=== PATIENT | female | born 1935 | race Caucasian/White ===

== ENCOUNTER 2016-05-04 13:31 | Emergency (ER) | payer MEDICARE ==
--- NOTE | 2016-05-04 15:13 | RAD ---
Indication: Fall. Comparison: August 23, 2014 MRI MRI. April 28, 2011 CT. Technique: Noncontrast CT vertex of skull through foramen magnum. Report: Moderate prominence of the cerebral sulci and ventricles. Unremarkable basal cisterns. Negative for hartman matter white matter obscuration, intra or extra-axial hemorrhage, or mass effect. Decreased density in the periventricular and subcortical white matter while non-specific is most likely due to chronic microangiopathy. No fracture or suspicious lesion of the calvarium or skull base. Small mucous retention cyst in the RIGHT sphenoid sinus. Negative for paranasal sinus fluid levels within the [id number]. Grossly clear mastoid air spaces. Negative for scalp hematoma. IMPRESSION: 1. No evidence for traumatic brain injury or acute intracranial process. 2. Mild to moderate involutional change with progression and stigmata of chronic small vessel ischemic gliosis.
[2016-05-04 17:18] VITALS: BP 117/79
--- NOTE | 2016-05-05 07:39 | ED ---
Bradford Thomas Adam, scribed for Noah Vega MD on 05/04/16 at 1438 . Adult Trauma - HPI Summary HPI Summary: Pt is a 81 year old female who fell off the toilet this morning and sustained injuries to her head. She states that she is incontinent and as she sat down on the toilet seat she skidded off and fell to the ground. She struck the back of her head and she presents with a lump but denies any KRISHNAN. She also has a laceration with dried blood on the top of her lip and on the outside of her right eye. She does not remember if she lost consciousness. She is not on any blood thinners. PMHx of sciatica on the right side. - History of Current Complaint Chief Complaint: EDSyncope Stated Complaint: FALL Time Seen by Provider: 05/04/16 14:06 Hx Obtained From: Patient Mechanism of Injury: Fall Loss of Consciousness: unsure Onset/Duration: Started Hours Ago, Traumatic, Still Present Onset of Pain: Immediate Onset Severity: Mild Current Severity: Mild Location: Head Aggravating Factor(s): Nothing Alleviating Factor(s): Nothing Associated Signs & Symptoms: Positive: Memory Loss - Unsure if she lost consciousness - Allergy/Home Medications Allergies/Adverse Reactions: Allergies Allergy/AdvReac Type Severity Reaction Status Date / Time Acetaminophen [From Percocet] Allergy Vomiting Verified 03/15/16 07:15 Aripiprazole [From Abilify] Allergy Hallucinati Verified 03/15/16 07:15 ons Lactose Intolerance (GI) Allergy Nausea And Verified 03/15/16 07:15 Vomiting Oxycodone [From Percocet] Allergy Vomiting Verified 03/15/16 07:15 Sulfa Antibiotics Allergy Nausea And Verified 03/15/16 07:15 Vomiting Valproic Acid [From Depakote] AdvReac Severe psychosis Verified 03/15/16 07:15 PMH/Surg Hx/FS Hx/Imm Hx Endocrine/Hematology History: Reports: Hx Thyroid Disease - ON DAILY MEDS Denies: Hx Diabetes Cardiovascular History: Denies: Hx Hypertension, Hx Pacemaker/ICD Respiratory History: Denies: Hx Asthma GI History: Reports: Hx Gastroesophageal Reflux Disease - ON MEDS DAILY, Hx Irritable Bowel - CHRONIC CONSTIPATION, Other GI Disorders - 2011 BLEEDING GGASTRIC ULCER, [place] [facility] [place] History: Denies: Hx Renal Disease Musculoskeletal History: Reports: Hx Arthritis - NUMEROUS JOINTS, Other Musculoskeletal History - SCOLIOSIS, VERY DIFFICULT TO TOLERATE LYING ON BACK Sensory History: Reports: Hx Cataracts - BILATERAL, Hx Contacts or Glasses - GLASSES Denies: Hx Hearing Aid Opthamlomology History: Reports: Hx Cataracts - BILATERAL, Hx Contacts or Glasses - GLASSES Neurological History: Reports: Other Neuro Impairments/Disorders - BIPOLAR Psychiatric History: Reports: Hx Anxiety, Hx Depression Denies: Hx Panic Disorder - Cancer History Cancer Type, Location and Year: CARCINOMA Hx Chemotherapy: No Hx Radiation Therapy: No - Surgical History Surgery Procedure, Year, and Place: C SECTION X 3; BLADDER PROLAPSE REPAIR 3 YRS AGO; CERVIX PROLAPSE REPAIR 3 YRS AGO; Hx Anesthesia Reactions: No Infectious Disease History: Yes Infectious Disease History: Reports: Hx Hepatitis - hep A Denies: Traveled Outside the [place] in Last 30 Days - Family History Known Family History: Positive: Other - Negative FMHx of breast CA - Social History Occupation: Retired Lives: Alone Alcohol Use: Weekly Alcohol Amount: 1 DRINK/WEEK Hx Substance Use: No Substance Use Type: Reports: None Hx Tobacco Use: No Smoking Status (MU): Never Smoked Tobacco Have You Smoked in the Last Year: No Review of Systems Positive: Other - Lump on back of head Positive: Other - Laceration on upper lip and outside of right eye Negative: Headache All Other Systems Reviewed And Are Negative: Yes Physical Exam Triage Information Reviewed: Yes Vital Signs On Initial Exam: Initial Vitals Temp Pulse Resp BP Pulse Ox 98.1 F 48 16 135/76 94 05/04/16 13:44 05/04/16 13:44 05/04/16 13:44 05/04/16 13:44 05/04/16 13:44 Vital Signs Reviewed: Yes Appearance: Positive: Well-Appearing, No Pain Distress Skin: Positive: Other - 1.25 cm laceration on upper lip, completely outside vermilion border. Superficial 1 cm laceration just superior to the right lateral eyebrow, doesn't need stitches. Head/Face: Positive: Normal Head/Face Inspection Eyes: Positive: Normal ENT: Positive: Normal ENT inspection Neck: Positive: Supple, Nontender Respiratory/Lung Sounds: Positive: Clear to Auscultation, Breath Sounds Present Cardiovascular: Positive: RRR Abdomen Description: Positive: Nontender, Soft Bowel Sounds: Positive: Present Musculoskeletal: Positive: Normal Neurological: Positive: Normal Psychiatric: Positive: Normal, Affect/Mood Appropriate - [place] Coma Scale Coma Scale Total: 15 Procedures - Laceration/Wound Repair 1 Location: face Description: Linear Anesthesia: Local, 2.0% Length, Depth and Shape: 1.25 cm Betadine Prep?: Yes Laceration/Wound Explored: clean Closure: Single Layer Suture Type: Nylon - 6.0 Number of Sutures: 7 Layer Closure?: No Diagnostics - Vital Signs Vital Signs Temp Pulse Resp BP Pulse Ox 05/04/16 13:44 98.1 F 48 16 135/76 94 - Laboratory Lab Results: Lab Results 05/04/16 Range/Units 14:12 POC Glucose (mg/dL) 111 H (74-106) mg/dL Lab Statement: Any lab studies that have been ordered have been reviewed, and results considered in the medical decision making process. - CT BRAIN CT Interpretation Completed By: Radiologist - IMPRESSION: 1. No evidence for traumatic brain injury or acute intracranial process. 2. Mild to moderate involutional change with progression and stigmata of chronic small vessel ischemic gliosis. - Additional Comments Diagnostic Additional Comments: Glucose - 111 Adult Trauma Course/Dx - Course Course Of Treatment: Ms. Camarena presented after a ifrah fall with no C/O except mild head pain and two lacerations. A head CT was normal. She had a superficial 1 cm laceration just superior to the lateral border of her right eyebrow I cleaned but did not require sutures. She had a slightly longer and deeper laceration just right of the midline of her upper lip outside the yamileth border that I repaired. She will need suture removal in 3-5 days. - Diagnoses Provider Diagnoses: Head injury, Facial laceration Discharge - Discharge Plan Condition: Stable Disposition: HOME Patient Education Materials: Head Injury (ED), Facial Laceration (ED) Referrals: Carmine Mehta MD [Primary Care Provider] - Additional Instructions: Follow up with Dr. Mehta in 3-5 days to have sutures removed. The documentation as recorded by the Bradford glover Adam accurately reflects the service I personally performed and the decisions made by , Noah Vega MD.
== END 2016-05-04 17:18 | disposition home or self-care (01) ==
LOC: ED 13:31
DX: S01.511A Laceration without foreign body of lip, initial encounter (principal); S09.90XA Unspecified injury of head, initial encounter; R55 Syncope and collapse; R22.0 Localized swelling, mass and lump, head; W18.12XA Fall from or off toilet with subsequent striking against object, initial encounter; Y93.9 Activity, unspecified; Y92.9 Unspecified place or not applicable; Y99.9 Unspecified external cause status
CPT/HCPCS: 12001; 70450; 99285

== ENCOUNTER 2017-04-06 21:32 | Observation (INO) | payer MEDICARE ==
--- OUTSIDE RECORDS SUMMARY | 2017-04-06 22:02 | XMS REPORT ---
:1935 External Reference #:[id number] Author Organization [facility] Address [address] [address] Phone [phone] Care Team Providers Name Role Phone Carmine Mehta MD Primary Care Physician Unavailable Payers Type Date Identification Numbers Payment Provider Subscriber Medicare Primary Effective: Policy Number: Medicare Julianne Camarena 1999 [id number] PayID: [id number] [address] [place] [address] [facility] Policy Number: [id number] [facility] Julianne Camarena PayID: [id number] [address] [place] [address] Problems Date Description Provider Status Onset: 08/16/2014 Constipation Blanca Erickson M.D. Active Onset: 08/16/2014 Urinary incontinence Blanca Erickson M.D. Active Onset: 08/16/2014 Bipolar disorder Blanca Erickson M.D. Active Onset: 03/02/2016 Acquired trigger finger Alfredo tSokes MD Active Social History Type Date Description Comments Lives With Assisted living ETOH Use Occasionally consumes alcohol 3 drinks weekly Smoking Patient has never smoked Exercise Type/Frequency Exercises sporadically Allergies, Adverse Reactions, Alerts Date Description Reaction Status Severity Comments 08/16/2014 Abilify "I went crazy" active 08/16/2014 Depakote "I went crazy." active 09/30/2014 Percocet Unknown active Medications Medication Date Status Form Strength Qnty SIG Indications Ordering Provider Naproxen 01/08/ Active Tablets 500mg 60tab 1 po bid Sarwat Cuellar M.D. [place] / Active Capsules 300mg 1 by mouth Unknown Carbonate 0000 every morning Seroquel / Active Tablets 100mg 1 by mouth Unknown 0000 every night Aricept / Active Tablets 5mg 1 by mouth Unknown 0000 every day Levothyroxine / Active Tablets 125mcg 1 by mouth Unknown Sodium 0000 every day Metoprolol // Active Tablets ER 25mg 1 by mouth Unknown Succinate ER 0000 24HR every day Omeprazole / Active Capsules 20mg 1 by mouth Unknown 0000 DR every day Simvastatin / Active Tablets 20mg 1 by mouth Unknown 0000 every day Diphenoxylate-At / Active Tablets 1 tab po Unknown ropine 0000 bid. If not effective, may take tid Melatonin / Active Capsules 1mg 1 tab po Unknown 0000 dailyevery day Multivitamins / Active Capsules 1 capsule Unknown 0000 daily [place] / Active Tablets ER 450mg Unknown Carbonate ER 0000 Donepezil HCL / Active Tablets 10mg Unknown 0000 Montelukast / Active Tablets 10mg Windy, Sodium 0000 Sugey Hydrocortisone / Active Cream 2.5% Kleveno, 0000 Ashley, [employer] Latuda / Active Tablets 40mg Unknown 0000 Gabapentin / Active Capsules 300mg Unknown 0000 Hydrocodone-Acet 03/15/ Hx Tablets 5-325mg 10tab 1 tab by Alfredo anderson 2015 - mouth every Kike, 03/15/ 6 hours as 2016 needed for pain Celestone 3 mg / Active Injection Alfredo and 3mg 0000 MD Kike Vital Signs Date Vital Result Comment 03/22/2017 Height 61.5 inches 5'1.50" Weight 185.00 lb Heart Rate 58 /min BP Systolic Sitting 148 mmHg BP Diastolic Sitting 86 mmHg Body Temperature 98.6 F BMI (Body Mass Index) 34.4 kg/m2 05/15/2016 Height 64 inches 5'4" Weight 185.00 lb Pain Level 0 BMI (Body Mass Index) 31.8 kg/m2 03/27/2016 Height 64 inches 5'4" Weight 185.00 lb BMI (Body Mass Index) 31.8 kg/m2 03/02/2016 Height 64 inches 5'4" Weight 185.00 lb Heart Rate 60 /min Respiratory Rate 16 /min Pain Level 0 BMI (Body Mass Index) 31.8 kg/m2 09/30/2014 Height 64 inches 5'4" Weight 184.00 lb Heart Rate 60 /min BP Systolic Sitting 140 mmHg BP Diastolic Sitting 80 mmHg Respiratory Rate 16 /min BMI (Body Mass Index) 31.6 kg/m2 08/16/2014 Height 64 inches 5'4" Weight 184.00 lb Heart Rate 56 /min BP Systolic Sitting 126 mmHg BP Diastolic Sitting 72 mmHg Respiratory Rate 16 /min BMI (Body Mass Index) 31.6 kg/m2 Results Test Date Test Result H/L Range Note Laboratory test finding 09/30/2014 Vitamin B12 567 pg/mL 180-914 1 1 Normal Range 180 to 914 Indeterminate Range 145 to 180 Deficient Range <145 Procedures Date CPT Code Description Status 03/22/2017 88327 Inject Tendon Sheath Or Ligament Aponeurosis Eg Plantar Completed Fascia 05/18/2016 23331 Holter Monitor Review (24 hr)dr mcconnell & kayla Completed only 05/17/2016 91609 ECG Monitor/Recording W/Visual Superimposition Scanning Completed 03/15/2016 18277 Trigger Finger Release Incision / Tendon Sheath Completed Incision 03/15/2016 62007 Trigger Finger Release Incision / Tendon Sheath Completed Incision 03/15/2016 32943 Trigger Finger Release Incision / Tendon Sheath Completed Incision 09/12/2012 84081 EKG Tracing & Interpretation Completed Encounters Type Date Location Provider CPT E/M Dx Office Visit 03/22/2017 [place] [address] M65.332 1:00p [facility] Office Visit 03/02/2016 [place] [address] M65.342 10:30a [facility] M65.352 M72.0 Office Visit 09/30/2014 10:30a [facility] Blanca Erickson, 38416 331.83 Janny Office Visit 08/16/2014 10:00a [facility] Blanca Erickson, 87068 V15.88 Services Of [facility] Soliman [phone] 331.83 Office Visit 09/12/2012 2:30p [facility] Geoffrey Ac M.D., 86551 794.30 [facility] At [facility] Office Visit 01/02/2011 1:15p [facility] Of Sarwat Cuellar, 57363 727.04 Lyric Soliman 354.0 Office Visit 12/25/2010 10:45a [facility] Emil Mcduffie, 21426 719.45 Of [facility] Soliman Office Visit 01/12/2010 10:00a [facility] Of Sarwat Cuellar, 40069 354.0 Lyric Soliman 718.84 Office Visit 2008 2:00p [facility] Emil Mcduffie, 54786 756.12 Of [facility]ante Soliman Office Visit 11/20/2007 10:15a [facility] Emil Mcduffie 27590 756.12 Of Devante Soliman 724.02 724.3 Plan of Care No Information Available
[2017-04-06] MEDS ORDERED: NS 0.9% 1000 ML* 1,000 ML IV SCH (22:30)
[2017-04-06 23:18] LABS: Hematocrit 40 % (35-47); Hemoglobin 13.3 g/dl (12.0-16.0); Mean Corpuscular HGB Conc 33 g/dl (31-36); Mean Corpuscular Hemoglobin 31 pg (27-31); Mean Corpuscular Volume 95 fL (80-97); Mean Platelet Volume 9 um3 (7.4-10.4); Red Blood Count 4.24 10^6/ul (4.0-5.4); Red Cell Distribution Width 13 % (10.5-15); White Blood Count 9.5 10^3/ul (3.5-10.8)
[2017-04-06 23:31] LABS: ALT 15 U/L (7-52); AST 18 U/L (13-39); Alkaline Phosphatase 81 U/L (34-104); Anion Gap 5 mmol/L (2-11); BUN/Creatinine Ratio 25.5 (8-20); Blood Urea Nitrogen 25 mg/dL (6-24); C Reactive Protein < 1.00 mg/L (< 5.00); CO2 Carbon Dioxide 24 mmol/L (22-32); Calcium 9.5 mg/dL (8.6-10.3); Chloride 110 mmol/L (101-111); EGFR African American 70.2 (>60); EGFR Non-African American 54.6 (>60); Globulin 2.6 g/dL (2-4); Glucose 99 mg/dL (70-100); Potassium 4.3 mmol/L (3.5-5.0); Sodium 139 mmol/L (133-145); Total Protein 6.6 g/dL (6.4-8.9)
[2017-04-06 23:33] LABS: Troponin I 0.02 ng/mL (<0.04)
[2017-04-06 23:45] LABS: TSH (Thyroid Stimulating Horm) 2.62 mcIU/mL (0.34-5.60)
--- NOTE | 2017-04-07 00:27 | ED ---
Scotty Thomas Natalie, scribed for Gomez Lord MD on 04/06/17 at 2226 . Dizziness - HPI Summary HPI Summary: The pt is a 82 y/o F presenting to the ED via EMS from [place] c/o fall when getting out of the bath today, and falling before earlier in the week. She uses a walker for ambulation, as recommended by her PCP. She falls regularly but can t get up due to limited upper extremity strength. The patient doesnt have any injury or pain from this fall. She has injured her head from previous falls. Pt additionally c/o nasal drainage, dizziness, and incontinence. Pt denies headache , chills, fever, blood in stools, melena, abd pain, back pain, CP, and SOB. She lives independently. - History Of Current Complaint Chief Complaint: EDGeneral Stated Complaint: FALL, DIZZINESS Time Seen by Provider: 04/06/17 22:08 Hx Obtained From: Patient Onset/Duration: Resolved Severity Initially: Moderate Severity Currently: None Character: Dizzy Aggravating Factor(s): Nothing Alleviating Factor(s): Nothing Associated Signs And Symptoms: Positive: Other: - POSITIVE: nasal drainage, dizziness, incontinence; NEGATIVE: headache, chills, fever, blood in stools, melena, abd pain, back pain, CP, SOB - Allergies/Home Medications Allergies/Adverse Reactions: Allergies Allergy/AdvReac Type Severity Reaction Status Date / Time Acetaminophen [From Percocet] Allergy Vomiting Verified 03/15/16 07:15 Aripiprazole [From Abilify] Allergy Hallucinati Verified 03/15/16 07:15 ons Lactose Intolerance (GI) Allergy Nausea And Verified 03/15/16 07:15 Vomiting Oxycodone [From Percocet] Allergy Vomiting Verified 03/15/16 07:15 Sulfa Antibiotics Allergy Nausea And Verified 03/15/16 07:15 Vomiting Valproic Acid [From Depakote] AdvReac Severe psychosis Verified 03/15/16 07:15 PMH/Surg Hx/FS Hx/Imm Hx Previously Healthy: No Endocrine/Hematology History: Reports: Hx Thyroid Disease - ON DAILY MEDS Denies: Hx Diabetes Cardiovascular History: Denies: Hx Hypertension, Hx Pacemaker/ICD Respiratory History: Denies: Hx Asthma GI History: Reports: Hx Gastroesophageal Reflux Disease - ON MEDS DAILY, Hx Irritable Bowel - CHRONIC CONSTIPATION, Other GI Disorders - 2010 BLEEDING GGASTRIC ULCER, HOSPITALIZED [facility] History: Denies: Hx Renal Disease Musculoskeletal History: Reports: Hx Arthritis - NUMEROUS JOINTS, Other Musculoskeletal History - SCOLIOSIS, VERY DIFFICULT TO TOLERATE LYING ON BACK Sensory History: Reports: Hx Cataracts - BILATERAL, Hx Contacts or Glasses - GLASSES Denies: Hx Hearing Aid Opthamlomology History: Reports: Hx Cataracts - BILATERAL, Hx Contacts or Glasses - GLASSES Neurological History: Reports: Other Neuro Impairments/Disorders - BIPOLAR Psychiatric History: Reports: Hx Anxiety, Hx Depression Denies: Hx Panic Disorder - Cancer History Cancer Type, Location and Year: CARCINOMA Hx Chemotherapy: No Hx Radiation Therapy: No - Surgical History Surgery Procedure, Year, and Place: C SECTION X 3; BLADDER PROLAPSE REPAIR 3 YRS AGO; CERVIX PROLAPSE REPAIR 3 YRS AGO; Hx Anesthesia Reactions: No Infectious Disease History: No Infectious Disease History: Reports: Hx Hepatitis - hep A Denies: Traveled Outside the [place] in Last 30 Days - Family History Known Family History: Positive: Other - Negative FMHx of breast CA Negative: Diabetes - Social History Alcohol Use: Weekly Alcohol Amount: 1 DRINK/WEEK Hx Substance Use: No Substance Use Type: Reports: None Hx Tobacco Use: No Smoking Status (MU): Never Smoked Tobacco Have You Smoked in the Last Year: No Review of Systems Negative: Fever, Chills Positive: Nasal Discharge Negative: Chest Pain Negative: Shortness Of Breath Positive: Other - NEGATIVE: blood in stool, melena. Negative: Abdominal Pain Positive: incontinence Positive: Other - limited upper extremity strength Neurological: Other - dizziness, fall Negative: Headache All Other Systems Reviewed And Are Negative: Yes Physical Exam Triage Information Reviewed: Yes Vital Signs On Initial Exam: Initial Vitals Temp Pulse Resp BP Pulse Ox 98 F 71 14 139/84 93 04/06/17 21:38 04/06/17 21:38 04/06/17 21:38 04/06/17 21:38 04/06/17 21:38 Vital Signs Reviewed: Yes Appearance: Positive: Well-Appearing, No Pain Distress Skin: Positive: Warm, Skin Color Reflects Adequate Perfusion, Dry Head/Face: Positive: Normal Head/Face Inspection Eyes: Positive: EOMI, JOSÉ ENT: Positive: Normal ENT inspection Neck: Positive: Supple, Nontender Respiratory/Lung Sounds: Positive: Clear to Auscultation, Breath Sounds Present Cardiovascular: Positive: RRR Abdomen Description: Positive: Nontender, Soft Bowel Sounds: Positive: Present Musculoskeletal: Positive: Normal, Strength/ROM Intact Neurological: Positive: Normal, Sensory/Motor Intact, Alert, Oriented to Person Place, Time Psychiatric: Positive: Affect/Mood Appropriate - Zbigniew Coma Scale Coma Scale Total: 15 Diagnostics - Vital Signs Vital Signs Temp Pulse Resp BP Pulse Ox 04/06/17 21:38 98 F 71 14 139/84 93 - Laboratory Lab Results: Lab Results 04/06/17 04/06/17 04/06/17 Range/Units 23:01 23:01 23:01 WBC 9.5 (3.5-10.8) 10^3/ul RBC 4.24 (4.0-5.4) 10^6/ul Hgb 13.3 (12.0-16.0) g/dl Hct 40 (35-47) % MCV 95 (80-97) fL MCH 31 (27-31) pg MCHC 33 (31-36) g/dl RDW 13 (10.5-15) % Plt Count 190 (150-450) 10^3/ul MPV 9 (7.4-10.4) um3 Neut % (Auto) 76.4 (38-83) % Lymph % (Auto) 13.8 L (25-47) % [place] % (Auto) 7.4 (1-9) % Eos % (Auto) 1.5 (0-6) % Baso % (Auto) 0.9 (0-2) % Absolute Neuts (auto) 7.2 (1.5-7.7) 10^3/ul Absolute Lymphs (auto) 1.3 (1.0-4.8) 10^3/ul Absolute Monos (auto) 0.7 (0-0.8) 10^3/ul Absolute Eos (auto) 0.1 (0-0.6) 10^3/ul Absolute Basos (auto) 0.1 (0-0.2) 10^3/ul Absolute Nucleated RBC 0 10^3/ul Nucleated RBC % 0 INR (Anticoag Therapy) 0.89 (0.77-1.02) APTT 27.7 (26.0-36.3) seconds Sodium 139 (133-145) mmol/L Potassium 4.3 (3.5-5.0) mmol/L Chloride 110 (101-111) mmol/L Carbon Dioxide 24 (22-32) mmol/L Anion Gap 5 (2-11) mmol/L BUN 25 H (6-24) mg/dL Creatinine 0.98 H (0.51-0.95) mg/dL Est GFR ( Amer) 70.2 (>60) Est GFR (Non-Af Amer) 54.6 (>60) BUN/Creatinine Ratio 25.5 H (8-20) Glucose 99 (70-100) mg/dL Lactic Acid (0.5-2.0) mmol/L Calcium 9.5 (8.6-10.3) mg/dL Magnesium 2.0 (1.9-2.7) mg/dL Total Bilirubin 0.30 (0.2-1.0) mg/dL AST 18 (13-39) U/L ALT 15 (7-52) U/L Alkaline Phosphatase 81 (34-104) U/L Troponin I 0.02 (<0.04) ng/mL C-Reactive Protein < 1.00 (< 5.00) mg/L Total Protein 6.6 (6.4-8.9) g/dL Albumin 4.0 (3.2-5.2) g/dL Globulin 2.6 (2-4) g/dL Albumin/Globulin Ratio 1.5 (1-3) TSH 2.62 (0.34-5.60) mcIU/mL // Range/Units 23:01 WBC (3.5-10.8) 10^3/ul RBC (4.0-5.4) 10^6/ul Hgb (12.0-16.0) g/dl Hct (35-47) % MCV (80-97) fL MCH (27-31) pg MCHC (31-36) g/dl RDW (10.5-15) % Plt Count (150-450) 10^3/ul MPV (7.4-10.4) um3 Neut % (Auto) (38-83) % Lymph % (Auto) (25-47) % [place] % (Auto) (1-9) % Eos % (Auto) (0-6) % Baso % (Auto) (0-2) % Absolute Neuts (auto) (1.5-7.7) 10^3/ul Absolute Lymphs (auto) (1.0-4.8) 10^3/ul Absolute Monos (auto) (0-0.8) 10^3/ul Absolute Eos (auto) (0-0.6) 10^3/ul Absolute Basos (auto) (0-0.2) 10^3/ul Absolute Nucleated RBC 10^3/ul Nucleated RBC % INR (Anticoag Therapy) (0.77-1.02) APTT (26.0-36.3) seconds Sodium (133-145) mmol/L Potassium (3.5-5.0) mmol/L Chloride (101-111) mmol/L Carbon Dioxide (22-32) mmol/L Anion Gap (2-11) mmol/L BUN (6-24) mg/dL Creatinine (0.51-0.95) mg/dL Est GFR ( Amer) (>60) Est GFR (Non-Af Amer) (>60) BUN/Creatinine Ratio (8-20) Glucose (70-100) mg/dL Lactic Acid 1.2 (0.5-2.0) mmol/L Calcium (8.6-10.3) mg/dL Magnesium (1.9-2.7) mg/dL Total Bilirubin (0.2-1.0) mg/dL AST (13-39) U/L ALT (7-52) U/L Alkaline Phosphatase (34-104) U/L Troponin I (<0.04) ng/mL C-Reactive Protein (< 5.00) mg/L Total Protein (6.4-8.9) g/dL Albumin (3.2-5.2) g/dL Globulin (2-4) g/dL Albumin/Globulin Ratio (1-3) TSH (0.34-5.60) mcIU/mL Result Diagrams: 04/06/17 23:01 04/06/17 23:01 Lab Statement: Any lab studies that have been ordered have been reviewed, and results considered in the medical decision making process. - Radiology CXR Xray Interpretation: No Acute Changes - NAD. ED physician has reviewed this report. Radiology Interpretation Completed By: Radiologist - CT Brain CT CT Interpretation: Positive (See Comments) - There is no intra or extra-axial hemorrhage or collection. No mass lesion or midline shift. There is stable moderate cortical atrophy. The size of the ventricles corresponds to the degree of cortical atrophy. Normal govea-white matter differentiation. Confluent areas of low attenuation in the periventricular and deep white matter again noted and this was compatible with chronic microvascular ischemic changes. ED physician has reviewed this report. CT Interpretation Completed By: Radiologist - EKG 22:48 Cardiac Rate: NL EKG Rhythm: Sinus Rhythm - 60 BPM EKG Interpretation: Nml ST. No ectopy. OR interval 311. Dizzy Course/Dx - Course Course Of Treatment: BP noted and advised to follow up with PCP. Allergies noted. Medications reviewed. 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 IN THE ED, SHE IS NO LONGER IN LBBB. THERE IS A PROLONGED OR INTERVAL. THIS WAS DISCUSSED WITH THE PATIENT, HER DAUGHTER AND THE HOSPITALIST. ADMIT HOSPITALIST. NO CRITICAL CARE TIME. - Diagnoses Provider Diagnoses: Dizziness, LBBB (left bundle branch block), Frequent falls Discharge - Discharge Plan Condition: Stable Disposition: ADMITTED TO [facility] Referrals: Carmine Mehta MD [Primary Care Provider] - The documentation as recorded by the Scotty glover Natalie accurately reflects the service I personally performed and the decisions made by me, Gomez Lord MD.
[2017-04-07] MEDS ORDERED: ALPRAZolam TAB* 0.25 MG PO ONE (01:57)
[2017-04-07] MEDS ORDERED: Melatonin (NF) 3 MG TAB PO PRN (04:28)
[2017-04-07] MEDS ORDERED: NS 0.9% 1000 ML* 1,000 ML IV SCH (04:30)
--- NOTE | 2017-04-07 04:57 | HP ---
H&P (Free Text) History and Physical: PCP: Zach Mehta MD Date/Time: 04/07/2017 0415 CC: light-headedness, generalized weakness, fall HPI: Mrs Camarena is an 82YO female resident of [facility] who was taking a bath attempting to get relief from some R-sided sciatica. When she tried to get out of the bathtub she couldn't get her leg up, became light-headed /woozy, generally weak, and fell. She denies head impact, LOC, chest pain, N/V, palpitations, SOB, F/C, cough, congestion, or other issues. She was too weak to stand, but was able to get to her LifeAlert and call for help. EMS obtained an ECG showing a LBBB that had resolved upon ECG performed in [facility]. Labs and vitals are unremarkable. PMedHx bipolar disorder HTN HLD hypothyroidism dementia GERD depression urinary incontinence OA Ambulatory Orders Allergy Relief 1 tab PO QAM 02/01/15 Aspirin [Aspirin Adult Low Dose] 81 mg PO QAM 02/01/15 Percorozcsd-Bfbebifnpim-Fqr C- [Glucosamine Chondroitin] 1 tab PO QAM 02/01/15 [place] Carbonate 150 mg PO QPM 02/01/15 Loperamide CAP* [Imodium CAP*] 2 mg PO Q4H PRN 02/01/15 Metoprolol Tartrate TAB* [Lopressor TAB*] 12.5 mg PO QPM 02/01/15 Multiple Vitamin [Multivitamins] 1 cap PO QAM 02/01/15 [place]-3 Fatty Acids [Fish Oil] 1,000 mg PO QAM 02/01/15 Omeprazole CAP* [PriLOSEC CAP*] 20 mg PO BEDTIME 02/01/15 QUEtiapine TAB* [SEROquel TAB*] 100 mg PO BEDTIME 02/01/15 Simvastatin TAB(NF) [Zocor(NF)] 20 mg PO QPM 02/01/15 Synthroid TAB (NF) 1 tab PO BEDTIME 02/01/15 Aricept 10 mg PO BEDTIME 02/09/15 Melatonin 3 mg PO DAILY 02/09/15 Allergies Acetaminophen [From Percocet] Allergy (Verified 03/15/16 07:15) Vomiting Aripiprazole [From Abilify] Allergy (Verified 03/15/16 07:15) Hallucinations Lactose Intolerance (GI) Allergy (Verified 03/15/16 07:15) Nausea And Vomiting Oxycodone [From Percocet] Allergy (Verified 03/15/16 07:15) Vomiting Sulfa Antibiotics Allergy (Verified 03/15/16 07:15) Nausea And Vomiting Valproic Acid [From Depakote] Adverse Reaction (Severe, Verified 03/15/16 07:15) psychosis SocHx: no tobacco, 1-2 glasses wine weekly, no recreational drugs; lives at [place] independently; full code status FamHx: reviewed, & non-contributory for this 82F ROS: as above, otherwise reviewed and all were negative vitals: Vital Signs Temp 36.6 C 04/06/17 21:38 Pulse 61 04/07/17 04:00 Resp 16 04/07/17 04:00 BP 155/86 04/06/17 22:30 Pulse Ox 95 04/07/17 04:00 Intake & Output 04/06/17 04/06/17 04/07/17 11:59 23:59 11:59 Weight 83.915 kg Constitutional: NAD, normally developed, obese elderly white female HEENM: atraumatic; sclera/conjunctiva: non-icteric/clear; hearing: clinically intact; oropharynx: clear, mucosa moist Neck: soft tissue: non-tender; thyroid: normal Pulmonary: clear to auscultation bilaterally, good aeration, no accessory muscle use CV: RR/RR, normal S1S2, no carotid bruit, no jugular venous distention, 2+ B DP/ PT, no edema Abdominal: soft, non-distended, non-tender, no rebound/guarding/rigidity, normoactive bowel sounds, no hepatosplenomegaly or masses, no costovertebral angle tenderness Musculoskeletal: general: grossly intact, no tenderness w/ palpation Integumental: normal appearance and texture of exposed skin Psychiatric orientation: AA&O to PPS affect: calm mood: cooperative, pleasant eye contact: good content: reliable responses: timely insight: good Testing: Lab Results 04/06/17 04/06/17 04/06/17 Range/Units 23:01 23:01 23:01 WBC 9.5 (3.5-10.8) 10^3/ul RBC 4.24 (4.0-5.4) 10^6/ul Hgb 13.3 (12.0-16.0) g/dl Hct 40 (35-47) % MCV 95 (80-97) fL MCH 31 (27-31) pg MCHC 33 (31-36) g/dl RDW 13 (10.5-15) % Plt Count 190 (150-450) 10^3/ul MPV 9 (7.4-10.4) um3 Neut % (Auto) 76.4 (38-83) % Lymph % (Auto) 13.8 L (25-47) % Darke % (Auto) 7.4 (1-9) % Eos % (Auto) 1.5 (0-6) % Baso % (Auto) 0.9 (0-2) % Absolute Neuts (auto) 7.2 (1.5-7.7) 10^3/ul Absolute Lymphs (auto) 1.3 (1.0-4.8) 10^3/ul Absolute Monos (auto) 0.7 (0-0.8) 10^3/ul Absolute Eos (auto) 0.1 (0-0.6) 10^3/ul Absolute Basos (auto) 0.1 (0-0.2) 10^3/ul Absolute Nucleated RBC 0 10^3/ul Nucleated RBC % 0 INR (Anticoag Therapy) 0.89 (0.77-1.02) APTT 27.7 (26.0-36.3) seconds Sodium 139 (133-145) mmol/L Potassium 4.3 (3.5-5.0) mmol/L Chloride 110 (101-111) mmol/L Carbon Dioxide 24 (22-32) mmol/L Anion Gap 5 (2-11) mmol/L BUN 25 H (6-24) mg/dL Creatinine 0.98 H (0.51-0.95) mg/dL Est GFR ( Amer) 70.2 (>60) Est GFR (Non-Af Amer) 54.6 (>60) BUN/Creatinine Ratio 25.5 H (8-20) Glucose 99 (70-100) mg/dL Lactic Acid (0.5-2.0) mmol/L Calcium 9.5 (8.6-10.3) mg/dL Magnesium 2.0 (1.9-2.7) mg/dL Total Bilirubin 0.30 (0.2-1.0) mg/dL AST 18 (13-39) U/L ALT 15 (7-52) U/L Alkaline Phosphatase 81 (34-104) U/L Troponin I 0.02 (<0.04) ng/mL C-Reactive Protein < 1.00 (< 5.00) mg/L Total Protein 6.6 (6.4-8.9) g/dL Albumin 4.0 (3.2-5.2) g/dL Globulin 2.6 (2-4) g/dL Albumin/Globulin Ratio 1.5 (1-3) TSH 2.62 (0.34-5.60) mcIU/mL 12//17 Range/Units 23:01 WBC (3.5-10.8) 10^3/ul RBC (4.0-5.4) 10^6/ul Hgb (12.0-16.0) g/dl Hct (35-47) % MCV (80-97) fL MCH (27-31) pg MCHC (31-36) g/dl RDW (10.5-15) % Plt Count (150-450) 10^3/ul MPV (7.4-10.4) um3 Neut % (Auto) (38-83) % Lymph % (Auto) (25-47) % Darke % (Auto) (1-9) % Eos % (Auto) (0-6) % Baso % (Auto) (0-2) % Absolute Neuts (auto) (1.5-7.7) 10^3/ul Absolute Lymphs (auto) (1.0-4.8) 10^3/ul Absolute Monos (auto) (0-0.8) 10^3/ul Absolute Eos (auto) (0-0.6) 10^3/ul Absolute Basos (auto) (0-0.2) 10^3/ul Absolute Nucleated RBC 10^3/ul Nucleated RBC % INR (Anticoag Therapy) (0.77-1.02) APTT (26.0-36.3) seconds Sodium (133-145) mmol/L Potassium (3.5-5.0) mmol/L Chloride (101-111) mmol/L Carbon Dioxide (22-32) mmol/L Anion Gap (2-11) mmol/L BUN (6-24) mg/dL Creatinine (0.51-0.95) mg/dL Est GFR ( Amer) (>60) Est GFR (Non-Af Amer) (>60) BUN/Creatinine Ratio (8-20) Glucose (70-100) mg/dL Lactic Acid 1.2 (0.5-2.0) mmol/L Calcium (8.6-10.3) mg/dL Magnesium (1.9-2.7) mg/dL Total Bilirubin (0.2-1.0) mg/dL AST (13-39) U/L ALT (7-52) U/L Alkaline Phosphatase (34-104) U/L Troponin I (<0.04) ng/mL C-Reactive Protein (< 5.00) mg/L Total Protein (6.4-8.9) g/dL Albumin (3.2-5.2) g/dL Globulin (2-4) g/dL Albumin/Globulin Ratio (1-3) TSH (0.34-5.60) mcIU/mL ECG ([facility] personally reviewed: 1st degree AV rate 60, T-wave inversions V1-3/ III/AVF ECG (EMS), personally reviewed: 1st degree LBBB rate 85 CXR, personally reviewed: no acute process CT brain WO, personally reviewed: FINDINGS: There is no intra- or extra-axial hemorrhage or collection. No mass lesion or midline shift. There is stable moderate cortical atrophy. The size of the ventricles corresponds to the degree of cortical atrophy. Normal hartman-white matter differentiation. Confluent areas of low attenuation in the periventricular and deep white matter again noted and this was compatible with chronic microvascular ischemic changes. The calvarium is intact. The visualized paranasal sinuses and mastoid air cells are clear. Impression: 82F presenting with fall, light-headedness, & generalized setting with transient LBBB noted on EMS ECG en route DIAGNOSIS & PLAN Primary transient LBBB w/ light-headedness & generalized weakness : telemetry : trend troponin : hold metoprolol : check ECHO in AM : supplemental oxygen : consider cardiology consult in AM : supportive care Secondary bipolar disorder : review meds once reconciled : check lithium level HTN : review meds once reconciled HLD : review meds once reconciled hypothyroidism : review meds once reconciled dementia : review meds once reconciled GERD : review meds once reconciled depression : review meds once reconciled urinary incontinence : review meds once reconciled OA : review meds once reconciled Admission Rational: observation for symptomatic arrhythmia DVTp: heparin SQ Code Status: full HCP: daughterPatricia
[2017-04-07] MEDS ORDERED: Omeprazole CAP* 20 MG PO SCH ×2 (06:00→21:00)
[2017-04-07 06:58] LABS: Lithium 0.24 mmol/L (0.6-1.2)
[2017-04-07 07:01] LABS: Troponin I 0.02 ng/mL (<0.04)
[2017-04-07 08:41] VITALS: BP 151/79
[2017-04-07] MEDS ORDERED: Aspirin EC Low Dose* 81 MG TAB.EC PO SCH (09:00)
[2017-04-07] MEDS ORDERED: Docusate CAP* 100 MG PO SCH (09:00)
--- NOTE | 2017-04-07 09:04 | RAD ---
Indication: Multiple falls. Single frontal view of the chest performed at 2235 hours was reviewed. Comparison is made with previous exam dated April 28, 2011. No mediastinal shift is noted. There is cardiomegaly noted. Lung lugo are clear. IMPRESSION: CARDIOMEGALY WITH NO ACTIVE CARDIOPULMONARY DISEASE.
--- NOTE | 2017-04-07 09:05 | RAD ---
Indication: Head injury after fall. CT of the brain was performed without IV contrast. Comparison is previous exam dated May 04, 2016. Ventricular structures are midline. No midline shift is noted. The extra-axial spaces are unremarkable. Periventricular lucency consistent with chronic ischemic White matter change is noted. There is no evidence of intracranial mass or hemorrhage. No other high or low density lesions are identified. Mastoid air cells and paranasal sinuses as well as the bony calvaria are unremarkable. IMPRESSION: No intracranial mass or hemorrhage is noted. Chronic ischemic White matter change. No changes noted since May 04, 2016.
[2017-04-07] MEDS ORDERED: NS 0.9% 1000 ML* 1,000 ML IV ONE (11:20)
[2017-04-07 11:48] LABS: HDL Cholesterol 46.6 mg/dL
[2017-04-07] MEDS ORDERED: amLODIPine TAB* 5 MG PO SCH (12:00)
--- NOTE | 2017-04-07 14:15 | ECHO ---
Patient: GABE CHARLES [facility] Rec#: [id number] : 1935 Date: 04/07/2017 Age: 82y Height: 160.02 cm / 63.0 in Weight: 83.91 kg / 184.9 lbs Sex: F BSA: 1.87 Room#: [facility] Admit Date#: 04/07/2017 Type: Inpatient Referring: xAel Salinas MD Reading: Krishna Clark MD Wiener Packer: Blanca OrdazRDCS,RDMS CC: Carmine Mehta MD Transthoracic Echocardiogram Indication: Abnormal EKG BP: 169/67 HR: 69 Rhythm: NSR Findings History: HTN, HLD, murmur Technical Comments: The study quality is fair. Left Ventricle: The left ventricular chamber size is normal.sigmoid septum. There is increased basal septal hypertrophy noted without evidence of an increased gradient across the left ventricular outflow tract. The estimated ejection fraction is 55-60%. Abnormal left ventricular diastolic filling is observed, consistent with impaired relaxation. Left Atrium: The left atrium is moderate to severely dilated. Right Ventricle: The right ventricular chamber size and systolic function are within normal limits. Right Atrium: The right atrium is not well visualized. Aortic Valve: The aortic valve is trileaflet. The aortic valve leaflets are mildly thickened. There is aortic annular calcification. There is mild aortic regurgitation. There is no evidence of aortic stenosis. Mitral Valve: The mitral valve leaflets are mildly thickened. There is a trace of mitral regurgitation. There is no evidence of mitral stenosis. Tricuspid Valve: The tricuspid valve leaflets are normal. There is trace to mild tricuspid regurgitation. No pulmonary hypertension is noted. Pulmonic Valve: The pulmonic valve appears normal. There is a trace pulmonic regurgitation. Pericardium: There is no significant pericardial effusion. Aorta: The aortic root appears normal. There is no dilatation of the aortic arch. Pulmonary Artery: The main pulmonary artery is not well visualized. Venous: The inferior vena cava appears normal in size. There is a greater than 50% respiratory change in the inferior vena cava dimension. Conclusions The left ventricular chamber size is normal.sigmoid septum. There is increased basal septal hypertrophy noted without evidence of an increased gradient across the left ventricular outflow tract. The estimated ejection fraction is 55-60%. Abnormal left ventricular diastolic filling is observed, consistent with impaired relaxation. The left atrium is moderate to severely dilated. There is a trace of mitral regurgitation. There is trace to mild tricuspid regurgitation. Similar to except that the LA size has increased. Measurements Name Value Normal Range RVIDd (AP) 2D 3.8 cm (0.9 - 2.6) RVDdMajor (2D) 3.4 cm (2.2 - 4.4) IVSd (2D) 1.9 cm (0.6 - 1) LVPWd (2D) 0.9 cm (0.6 - 1) LVIDd (2D) 4.8 cm (3.6 - 5.4) LVIDs (2D) 3.3 cm - LV FS (2D) 31 % (25 - 45) Aortic Annulus 2.1 cm (1.4 - 2.6) Ao root diameter (2D) 3.1 cm (2.1 - 3.5) Ascending Ao 3.3 cm (2.1 - 3.4) Aortic arch 3.3 cm (1.8 - 3.4) LA dimension (AP) 2D 4.8 cm (2.3 - 3.8) LAd ISD 4CH 6 cm (2.9 - 5.3) LA ISD 4CH W 5 cm (2.5 - 4.5) Name Value Normal Range LA ESV SP 4CH (A/L) 71.31 ml - LA ESV SP 2CH (A/L) 74.79 ml - LA ESV BP (A/L) 74.95 ml - LA ESV BP (A/L) index 40 ml/m2 - LA ESV SP 4CH (MOD) 68.47 ml - LA ESV SP 2CH (MOD) 72.56 ml - Name Value Normal Range MV E-wave Vmax 0.5 m/sec - MV deceleration time 243 msec - MV A-wave Vmax 0.9 m/sec - MV E:A ratio 0.6 ratio - P. vein S-wave Vmax 0.5 m/sec - P. vein D-wave Vmax 0.4 m/sec - P. vein S:D Vmax ratio 1.1 ratio - P. vein A-wave duration 111 msec - LV septal e' Vmax 0.04 m/sec - LV lateral e' Vmax 0.05 m/sec - LV E:e' septal ratio 12.5 ratio - LV E:e' lateral ratio 10 ratio - Name Value Normal Range AV Vmax 1.5 m/sec - AV VTI 35 cm - AV peak gradient 9 mmHg - AV mean gradient 4.9 mmHg - LVOT Vmax 0.8 m/sec - LVOT VTI 20.2 cm - LVOT peak gradient 2.6 mmHg - LVOT mean gradient 1.6 mmHg - AR PHT 510.25 msec - AR peak gradient 103.62 mmHg - JEY Vmax 0.4 m/sec - Name Value Normal Range TR Vmax 2.6 m/sec - TR peak gradient 27 mmHg - RAP 3 mmHg - RVSP 30 mmHg - IVC diameter 1.6 cm - Name Value Normal Range PV Vmax 0.7 m/sec - PV peak gradient 2 mmHg -
--- NOTE | 2017-04-07 17:33 | CONS ---
CC: Dr. Mehta; Krishna Clark MD CARDIOLOGY CONSULTATION: DATE OF CONSULT: 04/07/17 CONSULTING PHYSICIAN: Cassia Flores MD REASON FOR EVALUATION: Fall, possible bradycardia, possible conduction system abnormality. HISTORY OF PRESENT ILLNESS: This is a very pleasant 82-year-old woman who has a history of hypertension, hyperlipidemia and bipolar disorder. She has complained of dizziness and lightheaded spells for over 3 years. She states that about 3 years ago, she had an episode where she passed out while standing and does not remember the circumstances. She did have an evaluation back on 28/03, which included an echocardiogram performed in 04/30/11, which revealed basal septal thickening with mild concentric LVH, EF of 55% to 60%, mild left atrial enlargement, mild right ventricular enlargement, trace MR, trace TR, mild pulmonary hypertension. She also had a nuclear stress test on May 01 , which revealed partial stress-induced reversible perfusion defect of the lateral wall, greatest at the apex, suspicious for potential ischemia, preserved left ventricular wall motion, EF of 58% with stress and 73% with rest. According to the patient, she apparently saw Dr. Ac and it was recommended she have a cardiac catheterization, which she declined. She said that since then she has been feeling fairly well, able to use her walker to walk from her room to the dining room at [place] without a problem. She said that she has noticed she has had some sciatica pain on the right and has had some weakness in her legs and has had multiple falls. It sounds as though she had the 1 syncopal episode 3 years ago and that the other episodes have been associated with either mechanical issues or weakness of her right leg. Yesterday, she took a bath which she had not done in a while, to try to alleviate some of her sciatica symptoms. She said she tried to get out of the tub with sitting on the edge of the tub when she had weakness of her legs and fell to the floor and was able to get up. She remembers the fall. She had no loss of consciousness. She has incontinence in general. She denies any chest pain or shortness of breath. senior marketing data analyst were called and a tracing obtained during the evaluation revealed what appeared to be a possible left bundle branch block on the senior marketing data analyst' EKG. By the time she get to the hospital, she was in sinus rhythm with poor R-wave progression, possible old inferior NC and she has had no significant arrhythmias here. She was on a beta-patrick for hypertension which was held. She states that many mornings she will feel a little lightheaded or dizzy when she first gets up. She denies vertigo. She states that resolves after a few minutes, but comes and goes in the morning. She denies any previous rheumatic fever, murmurs, rheumatic heart disease. She does have hypertension, hyperlipidemia. She said she smoked 1 cigarette as a young adult. She has no asthma or emphysema. She denies palpitations or strokes. PAST MEDICAL HISTORY: Includes; 1. Hypertension. 2. Hyperlipidemia. 3. Hypothyroidism. 4. Gastroesophageal reflux. 5. Depression. 6. Bipolar disorder, which she states is well controlled on the medications and with counseling. 7. Urinary incontinence. 8. Osteoarthritis. 9. Sciatica MEDICATIONS: As outpatient include; 1. Synthroid. 2. Simvastatin 20 mg. 3. Seroquel 100 mg a day. 4. Omeprazole 20 mg at bedtime. 5. Multivitamin. 6. Metoprolol 12.5 mg q.p.m. 7. Melatonin. 8. [place] carbonate 150 mg daily. 9. Aspirin 81 mg a day. 10. Aricept 10 mg at bedtime As an inpatient, she is on; 1. Aspirin 81 mg a day. 2. Atorvastatin 10 mg a day. 3. Aricept 10 mg at bedtime. 4. [place] 150 mg q.p.m. 5. Melatonin 3 mg q.p.m. 6. Synthroid 1 tablet at bedtime. 7. Omeprazole 20 mg a day. 8. Seroquel 100 mg at bedtime. 9. Sodium chloride 50 mL an hour. ALLERGIES: Include; 1. ACETAMINOPHEN with vomiting. 2. ABILIFY, hallucinations. 3. LACTOSE intolerance. 4. OXYCODONE, vomiting. 5. SULFA, nausea and vomiting. 6. VALPROIC ACID, psychosis. FAMILY HISTORY: Includes father who had CABG in his 80s. Mother who of malignant brain tumor in her 80s. She is the oldest of 5 siblings. One brother had a pacer at age 76. She was , , and . She has 4 children. 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 SOCIAL HISTORY: She states she drinks about a glass of wine every couple of weeks, but once she has wine, she cannot go to sleep. She lives independently at [place]. ROS: neg x 10 except as above. PHYSICAL EXAM: General: She is a well-developed, well-nourished female, overweight, in no apparent distress. HEENT: Atraumatic, normocephalic. Extraocular muscles intact. Sclerae anicteric. No significant JVD. Carotids 2 + without bruits. Cardiac Exam: S1, S2 with a 1/6 systolic ejection murmur at the base. Chest: Clear. No CVAT. Abdomen: Bowel sounds present. Nontender. Neurologic: Femoral pulses intact without bruits. Distal pulses are intact. No edema. Motor strength 5/5 bilaterally. Deep tendon reflexes 2/ 4. Alert and oriented x3. skin turgor normal. Vital Signs: Blood pressure 151/ 79 with heart rate of 58. DIAGNOSTIC STUDIES/LAB DATA: Include white count 9.5, hemoglobin 13.3, hematocrit of 40, and platelet count 191,000. Sodium 139, potassium 4.3, BUN 25 , creatinine of 0.98. Troponins 0.02 and 0.02. TSH 2.62. [place] level 0.24. EKG from 9:40 this morning revealed sinus rhythm with left axis, old inferior NC, poor R-wave progression, possible anterior NC, and lateral ST-T changes. EKG from yesterday revealed less pronounced T-wave inversions anteriorly and EKG from 02/13/12 revealed sinus rhythm with counterclockwise rotation and possible old inferior NC. IMPRESSION: Ms. Camarena has a history of falls and possible loss of consciousness as well as abnormal stress test in 2012 and sigmoid septum.. Some of them sound as though they may be related to her radiculopathy and sciatic nerve injury, others raise the possibility of Owens Astudillo attack, but these have been rare and her dizziness in the morning may be due to hypotension or bradycardia. I also explained to her that the testing in the past raised the possibility of coronary artery disease and that the transient left bundle on exam and T-wave changes raised the possibility of ischemia vs degenerative conducting system disease. I would also consider the possibility that the statin could be contributing to weakness. For the time being, I would recommend the following; I would suggest an echocardiogram to reassess wall motion abnormalities. I would obtain a stress nuclear to evaluate for progression of her coronary artery disease. If the above is negative, would recommend holding her beta-patrick in light of the bradycardia and first-degree AV block and potential for symptomatic bradycardia or higher degree AV block. If the above is negative, would consider an implantable event monitor to rule out high grade AV block. Would consider using low dose of amlodipine to better control her blood pressures. I would recommend increased hydration. Of note, she is on multiple medications that potentially could affect heart rate and blood pressure regulation for her psychiatric issues. She has complained of occasional dizzies in the mornings. She cannot specify how long it has been going on, but it did not happen today. It is unclear whether her symptoms have been relieved by holding the beta-patrick or not. We will follow for further response to our interventions. Consider a trial of holding the statin if ck elevated or if sx's persist IF symptomatic bradycardia is confirmed, consider a pacer Further recommendations will depend on her clinical course. [id number]/[facility] #: [id number] LIV
[2017-04-07] MEDS ORDERED: Atorvastatin* 10 MG TAB PO SCH (18:00)
[2017-04-07] MEDS ORDERED: Lithium Carbonate TAB* 300 MG PO SCH (18:00)
[2017-04-07] MEDS ORDERED: SYNTHROID PO SCH (21:00)
[2017-04-07] MEDS ORDERED: CMCS Melatonin (NF) 3 MG TAB PO SCH (21:00)
[2017-04-07] MEDS ORDERED: Donepezil TAB* 5 MG PO SCH (21:00)
[2017-04-07] MEDS ORDERED: QUEtiapine TAB* 100 MG PO SCH (21:00)
--- NOTE | 2017-04-08 05:42 | DS ---
CC: Dr. Mehta; Dr. Clark * DISCHARGE SUMMARY: DATE OF ADMISSION: 04/07/17 DATE OF PATIENT SIGNING AGAINST MEDICAL ADVICE: 04/07/17 CONSULTATION: During the hospital stay included Dr. Clark from Cardiology. DISCHARGE DIAGNOSES: 1. Fall. 2. Transient left bundle branch block and EKG abnormalities after the fall. HOSPITALIZATION COURSE: Julianne Camarena is an 82-year-old female, who was dizzy and fell when she was getting out of the bathtub. For full details of the patient's presentation, please see history and physical dictated by Dr. Axel Salinas. Shortly, the patient was noted to have transient arrhythmia that appeared to be looking like left bundle branch block. Dr. Clark saw the patient in consultation and recommended switching the patient's metoprolol to Norvasc, which is going to be done at discharge. The patient is going to receive Norvasc 2.5 mg daily, and her metoprolol is going to be discontinued. The remaining medications are unchanged. After evaluation by Dr. Clark and recommendation by the dairy associate was for the patient to stay over for a cardiac stress test. The patient requested to sign against medical advice since she wants to spend [place] at home. She is alert and oriented x3 and she is competent to make her decision. She is aware of that she is at a risk of arrhythmia and possibility of sudden cardiac due to that. She stated that she is going to follow up with Dr. Mehta and have an outpatient stress test arranged by her primary care provider. Once again, the only change in her medication is discontinuation of metoprolol and placing the patient on amlodipine 2.5 mg daily instead. This is a short summary of the patient's hospitalization since the patient is leaving against medical advice. Please see the remaining medical records including Dr. Clark' s consultation for further details. [id number]/[facility] #: [id number] [facility]
== END 2017-04-07 15:15 | disposition left against medical advice (07) ==
LOC: ED 21:32 → MEDTELE 04-07 02:24
PROVIDERS: ADMIT Hospitalist; ATTEND Internal Medicine
DX: R42 Dizziness and giddiness (principal); R53.1 Weakness; I44.7 Left bundle-branch block, unspecified; W01.0XXA Fall on same level from slipping, tripping and stumbling without subsequent striking against object, initial encounter; Y92.002 Bathroom of unspecified non-institutional (private) residence as the place of occurrence of the external cause; F31.9 Bipolar disorder, unspecified; I10 Essential (primary) hypertension; E78.5 Hyperlipidemia, unspecified; E03.9 Hypothyroidism, unspecified; F03.90 Unspecified dementia, unspecified severity, without behavioral disturbance, psychotic disturbance, mood disturbance, and anxiety; K21.9 Gastro-esophageal reflux disease without esophagitis; F32.9 Major depressive disorder, single episode, unspecified; R32 Unspecified urinary incontinence; M19.90 Unspecified osteoarthritis, unspecified site; Z88.8 Allergy status to other drugs, medicaments and biological substances; Z88.2 Allergy status to sulfonamides; Z79.82 Long term (current) use of aspirin; Z79.899 Other long term (current) drug therapy; I51.7 Cardiomegaly
CPT/HCPCS: 36415; 70450; 71010; 80053; 80061; 80178; 82550; 83605; 83735; 84443; 84484; 85025; 85610; 85730; 86140; 93005; 93306; 96360; 96361; 99284; A9270-GY; G0378

== ENCOUNTER 2017-07-13 13:08 | Emergency (ER) | payer MEDICARE ==
--- OUTSIDE RECORDS SUMMARY | 2017-07-13 13:22 | XMS REPORT ---
:1935 External Reference #:[id number] Author Organization [email or web address] Address [address] [address] Phone [phone] Care Team Providers Name Role Phone Carmine Mehta MD Primary Care Physician Unavailable Payers Type Date Identification Numbers Payment Provider Subscriber Commercial Policy Number: [id number] [facility] Julianne Camarena PayID: [id number] [address] [place] [address] Medigap Part B Effective: 2001 Policy Number: Medicare Julianne Camarena [id number] Expires: 2017 PayID: [id number] [address] [place] [address] Medigap Part B Expires: Policy Number: [employer] Julianne Serrano 2017 [id number] [facility] Nicol PayID: [id number] [address] [place] [address] Problems Date Description Provider Status Onset: 08/16/2014 Constipation Blanca Erickson M.D. Active Onset: 08/16/2014 Urinary incontinence Blanca Erickson M.D. Active Onset: 08/16/2014 Bipolar disorder Blanca Erickson M.D. Active Onset: 03/02/2016 Acquired trigger finger Alfredo Stokes MD Active Onset: 06/13/2017 First degree atrioventricular block Rylie Vallejo M.D. Active Onset: 06/13/2017 Right bundle branch block Rylie Vallejo M.D. Active Onset: 06/13/2017 History of fall Rylie Vallejo M.D. Active Family History Date Family Member(s) Problem(s) Comments Father Coronary Artery Disease (CAD) CABG in 80's Mother Malignant Brain Tumor d/t in her 80's Social History Type Date Description Comments Lives With Assisted living [place] ETOH Use Occasionally consumes alcohol 3 drinks weekly Smoking Patient has never smoked Recreational Drug Use Denies Drug Use Daily Caffeine Consumes on average 1 cup of regular coffee per day Exercise Type/Frequency Exercises sporadically Allergies, Adverse Reactions, Alerts Date Description Reaction Status Severity Comments 08/16/2014 Abilify "I went crazy" active 08/16/2014 Depakote "I went crazy." active 09/30/2014 Percocet Unknown active 06/13/2017 Acetaminophen active 06/13/2017 Lactose active 06/13/2017 Oxycodone active 06/13/2017 Sulfa Antibiotics active 06/13/2017 Valproic Acid active Medications Medication Date Status Form Strength Qnty SIG Indications Ordering Provider [place] 00/00/ Active Capsules 450mg 1 by mouth Unknown Carbonate 0000 every morning Seroquel 0000/ Active Tablets 100mg 1 by mouth Unknown 0000 every night Aricept 00/00/ Active Tablets 10mg 1 by mouth Unknown 0000 every day Levothyroxine 00/ Active Tablets 125mcg 1 by mouth Unknown Sodium 0000 every day Omeprazole 00/ Active Capsules 20mg 1 by mouth Unknown 0000 DR every day Simvastatin 00/00/ Active Tablets 20mg 1 by mouth Unknown 0000 every day Melatonin 00/00/ Active Capsules 1mg 1 tab po Unknown 0000 dailyevery day Multivitamins 00/00/ Active Capsules 1 capsule Unknown 0000 daily Bupropion HCL ER 00/00/ Active Tablets ER 150mg 1 by mouth Unknown (XL) 0000 24HR daily Escitalopram 00/00/ Active Tablets 10mg 1 by mouth Unknown Oxalate 0000 daily Cephalexin 00/ Active Capsules 500mg 1 by mouth Unknown 0000 three times a day for 7 day Mupirocin / Active Ointment 2% apply to Unknown 0000 affected area two times per day Hydrocodone-Acet 03/15/ Hx Tablets 5-325mg 10tab 1 tab by Alfredo anderson 2015 - mouth every Stokes, 03/15/ 6 hours as 2015 needed for pain Naproxen 01/08/ Hx Tablets 500mg 60tab 1 po bid Sarwat 2010 - s pasquale Cuellar 06/12/ Janny 2018 Metoprolol / Hx Tablets ER 25mg 1 by mouth Unknown Succinate ER 0000 - 24HR every day 2017 Diphenoxylate-At / Hx Tablets 1 tab po Unknown ropine 0000 - bid. If not , 2017 may take tid [place] / Hx Tablets ER 450mg Unknown Carbonate ER - 2017 Donepezil HCL / Hx Tablets 10mg Unknown - 2017 Montelukast / Hx Tablets 10mg Polo, Sodium 0000 - Sarwat, 2017 Hydrocortisone / Hx Cream 2.5% Kleveno, 0000 - Ashley, 05/29/ BENZENE WORKER 2017 Latuda / Hx Tablets 40mg Unknown - 2017 Gabapentin / Hx Capsules 300mg Unknown - 2017 Amlodipine / Hx Tablets 5mg 1/2 tablet Unknown Besylate 0000 - by mouth every day 2017 Medications Administered in Office Medication Date Status Form Strength Qnty SIG Indications Ordering Provider Celestone 3 mg Administered Injection Alfredo and 3mg Karthikeyan Stokes MD Vital Signs Date Vital Result Comment 06/13/2017 Height 61.5 inches 5'1.50" Weight 179.00 lb Heart Rate 76 /min BP Systolic Sitting 124 mmHg Lue reg cuff BP Diastolic Sitting 88 mmHg Lue reg cuff BP Systolic Standing 126 mmHg Lue BP Diastolic Standing 92 mmHg Lue Respiratory Rate 16 /min BMI (Body Mass Index) 33.3 kg/m2 Ejection Fraction 55-60% 04/07/17 03/22/2017 Height 61.5 inches 5'1.50" Weight 185.00 [...] <145 Procedures Date CPT Code Description Status 06/13/2017 13053 EKG Tracing & Interpretation Completed 05/17/2017 50568 Treadmill Interp/Report Only Completed 05/17/2017 55605 Stress Test Supervsn W/Out I/R Completed 04/07/2017 11427 ECHO Transthorasic Realtime 2D W Doppler & Color Completed Flow Hosp 04/07/2017 91372 EKG, Interpretation Only Completed 04/06/2017 27871 EKG, Interpretation Only Completed 03/22/2017 87877 Inject Tendon Sheath Or Ligament Aponeurosis Eg Plantar Completed Fascia 05/18/2016 07708 Holter Monitor Review (24 hr)dr mcconnell & damonp Completed only 05/17/2016 41409 ECG Monitor/Recording W/Visual Superimposition Scanning Completed 03/15/2016 00559 Trigger Finger Release Incision / Tendon Sheath Completed Incision 03/15/2016 44278 Trigger Finger Release Incision / Tendon Sheath Completed Incision 03/15/2016 36183 Trigger Finger Release Incision / Tendon Sheath Completed Incision 09/12/2012 73501 EKG Tracing & Interpretation Completed Encounters Type Date Location Provider CPT E/M Dx Office Visit 04/07/2017 [facility] ,heaven Flores M.D. 94105 F31.9 10:19a Hospitalists W19.xxxA I44.7 I10 Office Visit 04/07/2017 4:48p [facility] Krishna Clark, 31901 W19.xxxA Janny R42 I25.2 R94.31 R00.1 Office Visit 03/02/2016 10:30a [facility] [place] [address] M65.342 C.M.ASherri M65.352 M72.0 Office Visit 09/30/2014 10:30a [facility] Blanca Obriengiulia, 59425 331.83 M.DSherri Office Visit 08/16/2014 10:00a [facility] Blanca Erickson, 42499 V15.88 Services Of Devante Soliman 788.30 564.00 331.83 Office Visit 09/12/2012 2:30p [place] Geoffrey Ac M.D., 98498 794.30 Language Interpreter At [facility] [place] 01/02/2011 1:15p [facility] [place] Cuellar, 80568 727.04 C.Imer Soliman 354.0 Office Visit 12/25/2010 10:45a [facility] Emil Mcduffie, 48307 719.45 Of Devante Soliman Office Visit 01/12/2010 10:00a [facility] [place] Cuellar, 82051 354.0 C.Imer Soliman 718.84 Office Visit 2008 2:00p [facility] Emil Mcduffie, 84388 756.12 Of Devante Soliman Office Visit 11/20/2007 10:15a [facility] Emil Mcduffie 00882 756.12 Of Devante Soliman 724.02 724.3 Plan of Care 06/13/2017 - Rylie Vallejo M.D.Z91.81 History of fallingComments:There is concern the falling could be from slowing of your heart.An event monitor could show us whatyour heart is doing when you fall.If your heart rate was dropping we would recommend a pacemaker.Follow up:Nursing: Show pt demos of Linq/Seeq and provide information on Seeq and Linq and permanent pacer. OV 4-6 months with ECG and PRN Put To DO for call back in a week to patient/daughter to see if interested in an event monitor.I45.10 Unspecified right bundle-branch bfqmjU06.0 Atrioventricular block, first oohdxxL09.39 Abnormal result of other cardiovascular function studyComments:Your stress test showed the pumping strength of your heart is normal, but also suggests you have a tight occlusion of one of the 3 major blood vessels supplying Oxygen to your heart.Recommendations:We can continue to treat your risk factors of cholesterol and blood pressures. Options to follow upon the test and confirm if there are blockages would be a heart catheterization or CT angiogram (thelatter cannot be done in [place]). As you are not have angina (chest, arm, neck, throat pain), I don't feel the heart cath is essential. Your shortness of breath walking could however be from blockedblood vessels among many other etiologies.
[2017-07-13 13:26] VITALS: BP 157/89
--- NOTE | 2017-07-13 14:41 | UC ---
Complaint Female HPI - HPI Summary HPI Summary: Accompanied by SOLAR MECHANICAL ENGINEER. SOLAR MECHANICAL ENGINEER states that she came to check on patient in the morning and patient was confused, stating that she was downtown, which was not possible, since she has problems with mobility, nobody had taken her there and is wheelchair bound. SOLAR MECHANICAL ENGINEER states she is assigned to the patient only several hours per day. She states patient has occasional memory lapses and is at times disoriented, and wanted to make sure patient does not have a urinary infection. Patient has baseline incontinence and wears adult diapers. Patient denies chills , low back pain, dysuria and SOLAR MECHANICAL ENGINEER states she had no fever. Patient and SOLAR MECHANICAL ENGINEER state 2 weeks ago she fell on the right side of her body and went to the ER She was afterwards followed by PCP. - History Of Current Complaint Chief Complaint: UCGeneralIllness Stated Complaint: URINARY ISSUE Time Seen by Provider: 07/13/17 13:46 Hx Obtained From: Patient, Family/Drop Shipment Clerk ?: No Onset/Duration: Sudden Onset, Lasting Hours Severity Initially: Mild Severity Currently: Mild Pain Intensity: 0 Character: Not Applicable Aggravating Factor(s): Nothing Alleviating Factor(s): Nothing - Risk Factors Ectopic Risk Factor: Negative Ovarian Torsion Risk Factor: Negative - Allergies/Home Medications Allergies/Adverse Reactions: Allergies Allergy/AdvReac Type Severity Reaction Status Date / Time valproic acid Allergy Severe PSYCHOSIS Verified 07/13/17 13:27 acetaminophen Allergy Unknown Vomiting Verified 07/13/17 13:27 (FROM PERCOCET) aripiprazole Allergy Unknown Hallucinati Verified 07/13/17 13:27 ons lactose Allergy Unknown Nausea And Verified 07/13/17 13:27 Vomiting oxycodone Allergy Unknown Vomiting Verified 07/13/17 13:27 (FROM PERCOCET) Sulfa (Sulfonamide Allergy Unknown Nausea And Verified 07/13/17 13:27 Antibiotics) Vomiting Home Medications: Home Medications Bupropion XL* [Wellbutrin XL *] 150 mg PO DAILY 07/13/17 [History Confirmed ] Escitalopram Oxalate [Lexapro 10 mg] 10 mg PO DAILY 07/13/17 [History Confirmed 07/13/17] Omeprazole CAP* [Prilosec CAP* 20 MG] 20 mg PO DAILY 07/13/17 [History Confirmed 07/13/17] PMH/Surg Hx/FS Hx/Imm Hx Previously Healthy: Yes Endocrine History: Dyslipidemia GI/ History: Gastroesophageal Reflux Psychological History: Bipolar Disorder - Surgical History Surgical History: Yes Surgery Procedure, Year, and Place: C SECTION X 3; BLADDER PROLAPSE REPAIR 3 YRS AGO; CERVIX PROLAPSE REPAIR 3 YRS AGO; - Family History Known Family History: Positive: Other - Negative FMHx of breast CA Negative: Diabetes - Social History Alcohol Use: None Alcohol Amount: 1 DRINK/WEEK Substance Use Type: None Smoking Status (MU): Never Smoked Tobacco Have You Smoked in the Last Year: No Review of Systems Constitutional: Negative Genitourinary: Other - baseline urinary incontinence All Other Systems Reviewed And Are Negative: Yes Physical Exam - Summary Physical Exam Summary: Patient is wheelchair bound, appears well hydrated, negative physical exam Triage Information Reviewed: Yes Appearance: Well-Appearing, Signs of Trauma - resolving hematoma on right arm and right thigh Vital Signs: Initial Vital Signs Temp 96.6 F 07/13/17 13:10 Pulse 72 07/13/17 13:10 Resp 16 07/13/17 13:10 BP 157/89 07/13/17 13:10 Pulse Ox 96 07/13/17 13:10 Vital Signs Reviewed: Yes Eyes: Positive: Conjunctiva Clear ENT: Positive: Pharynx normal, TMs normal, Uvula midline Neck: Positive: Supple, Nontender, No Lymphadenopathy Respiratory: Positive: Chest non-tender, Lungs clear, Normal breath sounds, No respiratory distress Cardiovascular: Positive: RRR, No Murmur, Pulses Normal, Brisk Capillary Refill Abdomen Description: Positive: Nontender, No Organomegaly, Soft, Bruit, Other: - no CVA tenderness Bowel Sounds: Positive: Present Musculoskeletal: Positive: No Edema Skin: Positive: Other - hematomas on right thigh and arm Complaint Female Dx - Course Course Of Treatment: POC urinalysis is normal. Patient has history of confusion and is taking psychotropic medications to treat bipolar disorder. Needs to follow up with PCP to address other causes for chronic confusion and history of falls, may need PT and increase in SOLAR MECHANICAL ENGINEER hours. Currently patient does not have any acute condition and is advised to f/u with PCP - Differential Dx/Diagnosis Provider Diagnoses: History of Confusion & disorientation Discharge - Sign-Out/Discharge Documenting (check all that apply): Discharge - Discharge Plan Condition: Stable Disposition: HOME Patient Education Materials: Urinary Incontinence (ED) Referrals: Carmine Mehta MD [Primary Care Provider] - - Billing Disposition and Condition Condition: STABLE Disposition: HOME
== END 2017-07-13 14:41 | disposition home or self-care (01) ==
LOC: UCEAST 13:08
DX: R41.0 Disorientation, unspecified (principal); S70.11XD Contusion of right thigh, subsequent encounter; S40.021D Contusion of right upper arm, subsequent encounter; W19.XXXD Unspecified fall, subsequent encounter; Z91.81 History of falling; E78.5 Hyperlipidemia, unspecified; K21.9 Gastro-esophageal reflux disease without esophagitis; F31.9 Bipolar disorder, unspecified; Z88.6 Allergy status to analgesic agent; Z88.5 Allergy status to narcotic agent; Z88.2 Allergy status to sulfonamides
CPT/HCPCS: 81003; 99211; G0463

== ENCOUNTER 2017-08-23 13:43 | Inpatient (IN) | payer MEDICARE ==
--- NOTE | 2017-08-23 14:39 | RAD ---
Indication: Syncope. CT of the brain was performed without IV contrast. Central and cortical atrophy is noted. Periventricular lucency consistent with chronic ischemic White matter change. There is no evidence of intracranial mass or hemorrhage. No other high or low density lesions are identified. IMPRESSION: Chronic ischemic White matter change with no evidence of intracranial mass or hemorrhage.
[2017-08-23 14:44] LABS: ABS Basophils 0.1 10^3/ul (0-0.2); ABS Eosinophils 0.1 10^3/ul (0-0.6); ABS Lymphocytes 0.8 10^3/ul (1.0-4.8); ABS Monocytes 0.6 10^3/ul (0-0.8); ABS Nucleated RBC 0 10^3/ul; Eosinophil % 1.7 % (0-6); Hematocrit 37 % (35-47); Hemoglobin 12.4 g/dl (12.0-16.0); Lymphocyte % 11.1 % (25-47); Mean Corpuscular HGB Conc 33 g/dl (31-36); Mean Corpuscular Hemoglobin 31 pg (27-31); Mean Corpuscular Volume 93 fL (80-97); Mean Platelet Volume 8.7 um3 (7.4-10.4); Nucleated Red Blood Cells % 0.1; Platelet Count 173 10^3/ul (150-450); Red Blood Count 4.02 10^6/ul (4.0-5.4); Red Cell Distribution Width 14 % (10.5-15); White Blood Count 7.6 10^3/ul (3.5-10.8)
--- NOTE | 2017-08-23 14:49 | RAD ---
Indication: Syncope. Single frontal view of the chest performed at 1408 hours was reviewed. Comparison is made with previous exam dated April 03, 2017. No mediastinal shift is noted. Heart is of normal size and configuration. Lung lugo appear clear. IMPRESSION: NO ACTIVE CARDIOPULMONARY DISEASE IS NOTED. Indication: Syncope.
[2017-08-23 15:01] LABS: EGFR Non-African American 57.3 (>60)
[2017-08-23 15:08] LABS: Urine Appearance Clear; Urine Blood Negative (Negative); Urine Color Yellow; Urine Ketones Negative (Negative); Urine Protein Negative (Negative); Urine Specific Gravity 1.011 (1.010-1.030); Urine Urobilinogen Negative (Negative)
--- NOTE | 2017-08-23 16:56 | RAD ---
INDICATION: Right hip pain after a fall COMPARISON: None TECHNIQUE: 3 views of the right hip were obtained. FINDINGS: The visualized bones of the right hip are well-corticated and properly aligned. The joint spaces are normal. There is no radiographic evidence of acute fracture or dislocation. IMPRESSION: Normal radiograph of the right hip. If the patient's symptoms persist follow-up imaging is recommended.
[2017-08-23] MEDS ORDERED: Ondansetron INJ* 2 MG/ML SYRINGE (from 40/20 VIAL) IV PRN (17:12)
[2017-08-23] MEDS ORDERED: Diphenoxylat/Atrop 2.5-0.025M* 1 TAB PO PRN (17:15)
[2017-08-23] MEDS ORDERED: hydrALAZINE IV* 20 MG/ML VIAL IV SLOW PU PRN (17:15)
--- NOTE | 2017-08-23 17:29 | RAD ---
CLINICAL HISTORY: Right hip pain after a fall COMPARISON: Right hip radiograph dated August 23, 2018 TECHNIQUE: Axial CT images of the pelvis were obtained without intravenous contrast. Reformats in the sagittal and coronal planes were created and reviewed. FINDINGS: There is no acute fracture or dislocation involving the right hip or pelvis. Degenerative changes include sclerotic change and subchondral lucencies at the bilateral sacroiliac joints including vacuum disc phenomenon. Similar degenerative changes include subchondral lucencies at the articulating services of the pubic symphysis. At the lower lumbar spine there is loss of intervertebral disc height and multilevel vacuum disc phenomenon as well as grade 1 anterolisthesis of L3 over L4 and L4 over L5. There is mild infiltration of the subcutaneous tissue overlying the right proximal femoral shaft and right trochanter (axial image 93 on series 2). There is no evidence of a underlying or intramuscular hematoma involving the right hip. The bowel and soft tissue structures visualized in the low abdomen and pelvis are normal. The patient's partially gas-filled appendix measures 6 mm in diameter (image 10). IMPRESSION: 1. Mild subcutaneous infiltration overlying the right greater trochanter and proximal right femur without underlying fracture or drainable hematoma formation. 2. Degenerative changes as described above without acute fracture or dislocation.
[2017-08-23] MEDS ORDERED: hydrALAZINE IV* 20 MG/ML VIAL ONE (17:33)
[2017-08-23] MEDS ORDERED: traMADol TAB* 50 MG PO PRN (17:47)
--- NOTE | 2017-08-23 18:28 | ED ---
Eb Thomas Angela, scribed for Navarro Hunter MD on 08/23/17 at 1413 . Syncope/Near Syncope - HPI Summary HPI Summary: This pt is a 82 y/o female presenting to [facility] via EMS from [facility] for a witnessed syncopal episode with a fall today. Pt reports she went to open the door when she syncopized and fell through the door. Pt notes she was not able to get back up and ambulate. She presents with right hip pain and bruising on right side of ribs. She states has sciatica and falls down often. PMHx includes multiple recent syncopal episodes, HTN. - History Of Current Complaint Chief Complaint: EDSyncope Time Seen by Provider: 08/23/17 13:55 Hx Obtained From: Patient Onset/Duration: Sudden Onset, Resolved Context: Unwitnessed Activity At Onset: Other - while opening the door Aggravating Factor(s): Nothing Alleviating Factor(s): Nothing Associated Signs And Symptoms: Other - bruising - Allergies/Home Medications Allergies/Adverse Reactions: Allergies Allergy/AdvReac Type Severity Reaction Status Date / Time valproic acid Allergy Severe PSYCHOSIS Verified 07/13/17 13:27 Penicillins Allergy Mild Rash Verified 08/23/17 14:59 acetaminophen Allergy Unknown Vomiting Verified 07/13/17 13:27 (FROM PERCOCET) aripiprazole Allergy Unknown Hallucinati Verified 07/13/17 13:27 ons lactose Allergy Unknown Nausea And Verified 07/13/17 13:27 Vomiting oxycodone Allergy Unknown Vomiting Verified 07/13/17 13:27 (FROM PERCOCET) Sulfa (Sulfonamide Allergy Unknown Nausea And Verified 07/13/17 13:27 Antibiotics) Vomiting Home Medications: Home Medications Calcium Carbonate TAB* 1,250 mg PO DAILY 08/23/17 [History Confirmed 08/23/17] Diphenoxylat/Atrop 2.5-0.025M* [Lomotil TAB*] 1 tab PO BID PRN 08/23/17 [ History Confirmed 08/23/17] Escitalopram (NF) [Lexapro 10 mg (NF)] 10 mg PO QPM 08/23/17 [History Confirmed 08/23/17] Levothyroxine TAB* [Synthroid TAB*] 125 mcg PO DAILY 08/23/17 [History Confirmed 08/23/17] [place] Carbonate ER TAB* 450 mg PO QPM 08/23/17 [History Confirmed 08/23/17] Mupirocin 2% OINT* [Bactroban 2 % Oint*] 1 applic TOPICAL BID 08/23/17 [History Confirmed 08/23/17] Vit A/Vit C/Vit E/Zinc/Copper [Preservision Areds Softgel] 1 cap PO BID [History Confirmed 08/23/17] PMH/Surg Hx/FS Hx/Imm Hx Endocrine/Hematology History: Reports: Hx Thyroid Disease - ON DAILY MEDS Denies: Hx Diabetes Cardiovascular History: Reports: Hx Angina, Hx Hypertension Denies: Hx Pacemaker/ICD Respiratory History: Denies: Hx Asthma GI History: Reports: Hx Gastroesophageal Reflux Disease - ON MEDS DAILY, Hx Irritable Bowel - CHRONIC CONSTIPATION, Other GI Disorders - 2010 BLEEDING GGASTRIC ULCER, [facility]PITALIZED [facility] History: Denies: Hx Renal Disease Musculoskeletal History: Reports: Hx Arthritis - NUMEROUS JOINTS, Other Musculoskeletal History - SCOLIOSIS, VERY DIFFICULT TO TOLERATE LYING ON BACK Sensory History: Reports: Hx Cataracts - BILATERAL, Hx Contacts or Glasses Denies: Hx Hearing Aid Opthamlomology History: Reports: Hx Cataracts - BILATERAL, Hx Contacts or Glasses Neurological History: Reports: Other Neuro Impairments/Disorders - BIPOLAR Psychiatric History: Reports: Hx Anxiety, Hx Depression Denies: Hx Panic Disorder - Cancer History Cancer Type, Location and Year: CARCINOMA Hx Chemotherapy: No Hx Radiation Therapy: No - Surgical History Surgery Procedure, Year, and Place: C SECTION X 3; BLADDER PROLAPSE REPAIR 3 YRS AGO; CERVIX PROLAPSE REPAIR 3 YRS AGO; Hx Anesthesia Reactions: No Infectious Disease History: No Infectious Disease History: Reports: Hx Hepatitis - hep A Denies: Traveled Outside the [place] in Last 30 Days - Family History Known Family History: Positive: Other - Negative FMHx of breast CA Negative: Diabetes - Social History Alcohol Use: None Alcohol Amount: 1 DRINK/WEEK Hx Substance Use: No Substance Use Type: Reports: None Hx Tobacco Use: No Smoking Status (MU): Never Smoked Tobacco Have You Smoked in the Last Year: No Review of Systems Negative: Fever, Chills Negative: Erythema Negative: Sore Throat Negative: Chest Pain Negative: Shortness Of Breath, Cough Negative: Abdominal Pain, Vomiting, Nausea Negative: dysuria, hematuria Positive: Arthralgia - right hip pain. Negative: Myalgia, Edema Positive: Bruising. Negative: Rash Neurological: Other - NEG: dizziness Positive: Syncope All Other Systems Reviewed And Are Negative: Yes Physical Exam - Summary Physical Exam Summary: Constitutional: Well-developed, Well-nourished, Alert, Cooperative Skin: Warm, Dry HENT: Normocephalic; No Racoons eyes; No pardo's sign; No abrasion; No contusion; No hemotympanum; No maxilla facial tenderness or instability; Dentition are smooth; No dental trauma; No trismus Eyes: EOM normal, PERRL Neck: Trachea is midline. No stridor; No JVD; No step off; No posterior cervical spine tenderness Cardio: Rhythm regular, rate normal Heart sounds normal; Intact distal pulses; The pedal pulses are 2+ and symmetric. Radial pulses are 2+ and symmetric. Pulmonary/Chest wall: Effort normal; Breath sounds normal; Equal chest rise; No flail segment; No rib tenderness; No sternal tenderness Abd: Soft, Appearance normal. No distension; No tenderness; No palpable pulsatile mass; No Cullens sign; No Hernandez-Turners sign Musculoskeletal: Tenderness over the right hip. No pain with ROM. Full ROM active and passiv eof the right hip. Full ROM and no tenderness at ankles, shoulders, elbows and knees; No joint swelling; No vertebral body tenderness; No paraspinal tenderness; No step off or deformity of the spine; Pelvis is stable to lateral compression and rock Neuro: Alert, Oriented x3, Strength 5/5 all extremities. : No blood at urethral meatus Psych: Mood and affect Normal Triage Information Reviewed: Yes Vital Signs On Initial Exam: Initial Vitals Temp Pulse Resp BP Pulse Ox 98.8 F 63 18 171/100 92 08/23/17 13:56 08/23/17 13:56 08/23/17 13:56 08/23/17 13:56 08/23/17 13:56 Vital Signs Reviewed: Yes - [place] Coma Scale Best Eye Response: 4 - Spontaneous Best Motor Response: 6 - Obeys Commands Best Verbal Response: 5 - Oriented Coma Scale Total: 15 Diagnostics - Vital Signs Vital Signs Temp Pulse Resp BP Pulse Ox 08/23/17 13:56 98.8 F 63 18 171/100 92 - Laboratory Result Diagrams: 08/23/17 14:26 08/23/17 14:26 Lab Statement: Any lab studies that have been ordered have been reviewed, and results considered in the medical decision making process. - Radiology Chest XR Xray Interpretation: No Acute Changes - IMPRESSION: No active cardiopulmonary disease is noted. Dr. Hunter has reviewed this radiology report. Radiology Interpretation Completed By: Radiologist Right hip and Pelvis XR Xray Interpretation: No Acute Changes - IMPRESSION: Normal radiograph of the right hip. Dr. Hunter has reviewed this radiology report. Radiology Interpretation Completed By: Radiologist - CT Brain CT CT Interpretation: No Acute Changes - IMPRESSION: Chronic ischemia white matter change with no evidence of intracranial mass or hemorrhage. Dr. Hunter has reviewed this radiology report. CT Interpretation Completed By: Radiologist Pelvis CT CT Interpretation: Positive (See Comments) - IMPRESSION: 1. Mild subcutaneous infiltration overlying the right greater trochanter and proximal right femur without underlying fracture or drainable hematoma formation. 2. Degenerative changes as described above without acute fracture or dislocation. Dr. Hunter has reviewed this radiology report. CT Interpretation Completed By: Radiologist - EKG 14:58 Cardiac Rate: Bradycardia - at 57 bpm EKG Rhythm: Sinus Bradycardia EKG Interpretation: No STEMI Course/Dx Assessment/Plan: pt is a 82 y/o female presenting to [facility] via EMS from [facility] for a witnessed syncopal episode with a fall today. Pt reports she went to open the door when she syncopized and fell through the door. Pt notes she was not able to get back up and ambulate. She presents with right hip pain and bruising. She states has sciatica and falls down often. Chest XR is negative. Brain CT shows chronic ischemia white matter change with no evidence of intracranial mass or hemorrhage. Right hip XR shows no fracture or dislocation. Pelvis CT reveals 1. Mild subcutaneous infiltration overlying the right greater trochanter and proximal right femur without underlying fracture or drainable hematoma formation. 2. Degenerative changes as described above without acute fracture or dislocation. Pt has hx of recent multiple syncopal episodes and falls. I discussed pt care with Dr. Hendrix, hospitalist, who has agreed to admit the pt. - Diagnoses Provider Diagnoses: Syncope, Bradycardia, Right hip pain - Physician Notifications Discussed Care of Patient With: Nolan Hendrix Instructed by Provider To: Other - Dr. Hendrix will consult on the pt. Discharge - Sign-Out/Discharge Documenting (check all that apply): Discharge/Admit/Transfer - Admit - Discharge Plan Condition: Stable Disposition: ADMITTED TO [facility] Referrals: Carmine Mehta MD [Primary Care Provider] - The documentation as recorded by the Eb glover Angela accurately reflects the service I personally performed and the decisions made by Dale brownlee Jerry, MD.
[2017-08-23] MEDS: QUEtiapine TAB* 100 MG PO SCH (19:16)
[2017-08-23] MEDS: amLODIPine TAB* 5 MG PO SCH (19:16)
[2017-08-23] MEDS: Lithium Carbonate ER* 450 MG TAB.ER PO SCH (20:50)
[2017-08-23] MEDS: Acetaminophen TAB* 325 MG PO PRN (20:51)
[2017-08-23] MEDS: Atorvastatin* 10 MG TAB PO SCH (20:51)
[2017-08-23] MEDS: Citalopram TAB* 20 MG PO SCH (20:51)
[2017-08-23] MEDS: Heparin VIAL(*) 5000 UNITS/ML VIAL (FIVE THOUSAND) SUBCUT SCH (20:51)
[2017-08-23] MEDS: Mupirocin 2% OINT* TUBE TOPICAL SCH (20:59)
[2017-08-23] MEDS: Multivitamins/Minera Areds(NF) 1 CAP CAP PO SCH (21:01)
--- NOTE | 2017-08-23 22:00 | CONS ---
CC: Dr. Vallejo; Dr. Abernathy; Dr. Mehta; Hospitalist Service CARDIOLOGY CONSULT: DATE OF CONSULT: 08/23/17 HISTORY OF PRESENT ILLNESS: I was asked by hospitalist service to see this 82-year- old female patie nt, who follows up with Dr. 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 Permanent pacemaker was discussed with the patient, was last seen by Dr. Vallejo on 06/13/17, the patient declined at [facility] time. The patient presented again to the hospital with recurrent fall, near syncope. She is at [facility], lives in there. The EKG today showed complete left bundle branch block. When sh yaritza was seen by Dr. Vallejo on 06/13/17, she was in a right bundle branch block and first-degree AV blo ck. The patient has never had a history of myocardial infarction. Cardiology consult was further re quested as the patient now is agreeable to have a permanent pacemaker implantation. She gives no fev er, no chills, no nausea, no vomiting, no hematochezia, no abdominal pain. She had no swelling in th e lower extremities. No skin rash is appreciated. PAST MEDICAL HISTORY: Includes frequent falls; syncope; alternating left bundle branch block and rig ht bundle branch block; history of bipolar disorder; urinary incontinence; first-degree AV block; hyp erlipidemia, on medical treatment; history of mental disability; depression; hypothyroidism; hyperten romero; gastroesophageal reflux disease; osteoarthritis. PAST SURGICAL HISTORY: Hand surgery. MEDICATIONS: As an outpatient include: 1. Lantry 450 mg daily. 2. Seroquel 100 mg daily. 3. Aricept 10 mg daily. 4. Levothyroxine 125 mcg daily. 5. Omeprazole 20 mg daily. 6. Simvastatin 20 mg daily. 7. Melatonin 1 tablet daily. 8. Multivitamins 1 daily. ALLERGIES: She is allergic to DEPAKOTE, PERCOCET, LACTOSE, OXYCODONE, SULFA ANTIBIOTICS, and VALPROI C ACID. FAMILY HISTORY: No family history of premature coronary artery disease. SOCIAL HISTORY: She lives at [place]. She has no history of smoking. She drinks alcohol occasiona lly. No history of illicit drug use. REVIEW OF SYSTEMS: Her review of all other systems essentially is negative. PHYSICAL EXAM: She is awake, alert, and oriented. She is not in acute distress. She had no symptoms of chest pain. Vitals: Blood pressure is 178/123 and then over 98, pulse is 59 with sinus rhythm, she is afebrile, temperature 99.3, and respiratory rate is 20. Head and Neck Exam: Normocephalic, a traumatic head. Ears, Nose, and Throat: Essentially benign. Neck: Supple. JVP is not elevated. No carotid bruits. No masses in the neck is appreciated. Chest: Clear to auscultation. No rales. N o wheezes. No added sounds appreciated. Heart: Normal, regular S1, S2. No added sounds. No gallop s. No rubs. Abdomen: Benign, soft. Positive bowel sounds. Extremities: No edema, no cyanosis, n o clubbing. Skin exam is normal. Psych: Normal affect and mood. LSW: No focal deficits appreciate d. DIAGNOSTIC STUDIES/LAB DATA: White blood cell 7.6, hemoglobin 12.4, hematocrit 37, platelets 173. S odium 140, potassium 4.3, chloride 110, total CO2 of 23, BUN 23, creatinine 0.94. TSH 0.99. EKG showed normal sinus rhythm, first-degree AV block, complete left bundle branch block. The patien t had a brain CT scan that showed chronic ischemic white matter change, no evidence of intracranial m ass or bleed. She had a chest x-ray that was reported no active disease. Hip/pelvis x-ray, normal r ight hip. Pelvis CT, degenerative disease, no fractures appreciated. IMPRESSION: The patient is an 82-year-old female with: 1. Recurrent multiple falls, near syncope, history of syncope in the past. 2. 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 3. The patient was recommended permanent pacemaker implantation based on the above in the past, but now she is agreeable to proceed. 4. Systemic arterial hypertension with elevated blood pressure in the emergency room. 5. Hyperlipidemia, on medical treatment. 6. Hypothyroidism, on medical treatment. 7. Bipolar syndrome, on medical treatment. 8. First-degree arteriovenous block. PLAN: I had a lengthy discussion with the patient about her clinical situation. She clearly wants to proceed with a permanent pacemaker implantation. We will schedule this as early as Saturday. She herbie ears to be hemodynamically stable. Her blood pressure needs close followup and observation at the pr esent time and I understand hospitalist service already started the patient on Norvasc 5 mg daily. Hy dralazine to be given 5 mg IV to control her blood pressure as well as to continue her outpatient med ications as well. I answered all her concerns and questions up to her satisfaction. I discussed thi s with the hospitalist service. TIME SPENT: More than half of at least 60-65 plus minutes was [id number] in the education and coun seling mode, explaining all of the above and making further recommendations accordingly. Thank you very much for asking us to participate in the care of this patient. [id number]/[facility] #: [id number]
--- NOTE | 2017-08-23 22:08 | HP ---
CC: Dr. Carmine Mehta * ADMISSION HISTORY AND PHYSICAL: DATE OF ADMISSION: 08/23/17 PRIMARY CARE PROVIDER: Dr. Carmine Mehta. MY ATTENDING WHILE IN THE HOSPITAL: Dr. Yovani Hendrix.* (DICTATED BY SUSAN OLSEN) CHIEF COMPLAINT: Syncope, fall with syncope. HISTORY OF PRESENT ILLNESS: Ms. Camarena is an 82-year-old female with past medical history significant for hypertension, hyperlipidemia, abnormal stress test, intermittent left bundle branch block, incomplete right bundle branch block, bipolar disorder, who presents to the emergency department with a fall. The patient states that she was leaning forward to get the door and blacked out , fell forward through the door and had fell on to her right hip and had her walker fall on her. The patient states this has been happening 3 times a week. The patient is a poor historian. This frequency of falling and blacking out is not corroborated by her daughter. The patient denies chest pain, shortness of breath, palpitations with these episodes. The patient states that her vision does not black out quickly, but becomes tunnel vision and then fades to black. The patient denies any recent illnesses. The patient states that she has never had this happen at rest, but does not happen immediately after she stands. It happens when she is walking around with no provoking factors that she can tell. The patient has no recent changes in her diet or medications. The patient has no numbness, tingling in her hands or feet. The patient has intermittent episodes of diarrhea, which she states are attributable to her IBS , though this is her norm. The patient has no weakness, numbness, or tingling in hands or feet. The patient denies fevers, chills, nausea, vomiting. The patient was recently seen by Dr. Vallejo of Cardiology and pacemaker was recommended and the patient and her daughter refused at that time. They also refused cardiac catheterization and implantable event recorder implementation. In discussion with the patient, she said she will be open to a pacemaker. This was also discussed with the patient's daughter and she would like to discuss it with her mother and her siblings. Due to concern for complete heart block, we were asked to evaluate for admission to the hospital. 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 PAST SURGICAL HISTORY: x3. MEDICATIONS: 1. Simvastatin 20 mg p.o. daily. 2. Quetiapine 100 mg p.o. daily. 3. Omeprazole 20 mg p.o. daily. 4. Bupropion XL 150 mg p.o. daily. 5. PreserVision 1 tab p.o. daily. 6. Calcium carbonate 1250 mg p.o. daily. 7. [place] carbonate 450 mg p.o. daily. 8. Lexapro 10 mg p.o. daily. 9. Bactroban 2 applications p.o. daily. 10. Synthroid 125 mcg p.o. daily. 11. Lomotil 1 tab p.o. b.i.d. as needed. 12. Aricept 10 mg p.o. daily. ALLERGIES: VALPROIC ACID, PENICILLIN, TYLENOL, ABILIFY, LACTOSE, OXYCODONE, SULFA. FAMILY HISTORY: The patient's father of CAD. The patient's mother of brain tumor. The patient had a brother, who had a pacemaker implanted. SOCIAL HISTORY: The patient smoked once in her life. The patient drinks 2 drinks a week. The patient denies illicit drug use. 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 The patient currently lives at [place]. The patient is twice and has 4 children. REVIEW OF SYSTEMS: A 14-point review of systems was reviewed and is negative except as above. PHYSICAL EXAMINATION GENERAL: The patient is an 82-year-old female, who appears stated age, sitting comfortably in the bed, in no acute distress. VITAL SIGNS: At time of evaluation, heart rate 59, respiratory rate 20, oxygen saturation 96% on room air, blood pressure 180/98. HEENT: Head: Normocephalic, atraumatic. Sclerae anicteric. No conjunctival injection. Nasal mucosa moist. Oral mucosa moist. No pharyngeal erythema, discharge, or exudate. NECK: Supple, nontender. No lymphadenopathy. No carotid bruit auscultated. No JVD. RESPIRATORY: Clear to auscultation bilaterally. No wheezes, rales, or rhonchi. Good air exchange bilaterally. CARDIAC: Regular rate and rhythm. No clicks, murmurs, gallops, or rubs. Pulses are 2+ in the bilateral dorsalis pedis, posterior tibial, and radial areas. No bilateral calf tenderness noted. ABDOMEN: Soft, nontender, nondistended. Bowel sounds present. Normoactive in all 4 quadrants. No hepatosplenomegaly. No abdominal bruits auscultated. GENITOURINARY: No suprapubic or CVA tenderness. NEURO: Cranial nerves II through XII intact. No focal deficits. Alert and oriented x3. Moderately confused. PSYCHIATRIC: Pleasant and cooperative. SKIN: Clean, dry, intact. No rash. No ecchymosis. No deformity. DIAGNOSTIC STUDIES/LAB DATA: White blood cell count 7.6, hemoglobin 12.4, hematocrit 37, platelet count 173. Sodium 140, potassium 4.3, chloride 110, carbon dioxide 23, anion gap 7, BUN 23, creatinine 0.94, glucose 101, lactic acid 1.2, calcium 9.4, magnesium 2.0. Total bilirubin 1.4, AST 17, ALT 13, alkaline phosphatase 69. Troponin I 0.02. Total protein 6.3, albumin 4.2. TSH 0.99. [place] 0.5. Urine unremarkable. Studies done: Electrocardiogram shows left bundle branch block, ME of 347, ST- segment elevation in V1, V2, and V3 likely due to bundle branch block, rate of 57, left axis deviation, no other abnormalities, left bundle branch block new from previous exam; however, the patient has had a documented left bundle branch block previously. Brain CT read as chronic ischemic white matter change with no evidence of intracranial mass or hemorrhage. Chest x-ray read as no active cardiopulmonary disease. Hip and pelvis x-ray read as normal radiograph of the right hip. Pelvis CT read as mild subcutaneous infiltration overlying the right greater trochanter and proximal right femur without underlying fracture, hematoma formation, degenerative change described above without acute fracture or dislocation. ASSESSMENT AND PLAN: Impression: Ms. Camarena is an 82-year-old female with past medical history significant for hypertension, hyperlipidemia, abnormal stress test, intermittent left bundle branch block and right bundle branch block, bipolar disorder, who presents with a fall according to the patient's report, syncope and loss of consciousness before the fall. The patient has a known history of presyncope with documented bradycardia. The patient was previously deemed to be a candidate for pacemaker by her outpatient eyelet riveter, Dr. Rylie Vallejo, and is willing to have consideration for pacemaker at this point. The patient will be admitted to the hospital for monitoring with a hope of catching her possible block or other arrhythmia on telemetry monitoring and Cardiology consult for consideration of pacemaker placement. 1. Syncope. The patient claimed she blacked out before her fall. The patient denies palpitations. The patient described tunnel vision. The patient states it has been happening frequently, but her daughter did not corroborate this report. The patient was previously seemed to have right bundle branch block, a left bundle branch block, and has a type I AV block on her EKG. The patient obviously has a poor conducting system. The patient was previously deemed to be a pacemaker candidate by Dr. Rylie Vallejo despite not having documented complete AV block on her EKG. This case has been discussed with Dr. Abernathy of Cardiology. He will see her in consultation for consideration of pacemaker. The patient states she wants pacemaker. The patient's daughter would like to discuss this with her family members before making a decision. Other possible causes of her syncope include torsades due to prolonged QT as well as orthostatic hypotension. The patient's lithium may be contributing to this. We will not discontinue the patient's psychiatric meds at this time, as she has been stabilized on this regimen, but appreciate cardiac consultation and we will likely get psychiatric consultation for competency and recommendations on replacing therapy for bipolar disorder. 2. Abnormal stress test. The patient has had 2 intermediate stress tests. The patient has previously refused a cardiac catheterization. She stated she would be interested in cardiac catheterization at this point. We will trend troponins in case ischemia is underlying the patient's bundle branch block or syncope. Repeat an EKG in the morning. No ischemic changes on EKG at this time , though left bundle branch block makes this difficult. The patient is currently chest pain-free. 3. Hypertension. The patient was significantly hypertensive while in the hospital. The patient will be started on amlodipine, which she was previously prescribed and it is unknown why this was stopped. The patient's amlodipine has slight indication for mood stabilization, so this will likely be a good agent for her to be started on. The patient will also have hydralazine as needed for blood pressures greater than 170. The patient will have orthostatic vital signs drawn to assess for orthostatic hypotension. 4. Hyperlipidemia. The patient is not on medication. We will update the patient's lipid profile in the morning. Continue simvastatin. 5. Bipolar disorder. Continue at this time Seroquel and lithium carbonate. Consideration to stop these agents will be pending cardiac consultation. 6. Irritable bowel syndrome. Continue Lomotil as needed. 7. Gastroesophageal reflux disease. Continue calcium carbonate. 8. Hypothyroidism. Continue Synthroid. The patient's TSH is within normal limits. 9. Dementia. Supportive care. 10. FEN. The patient will have a heart-healthy diet. Caffeine, okay. The patient will not have fluids at this time due to high blood pressure. 11. Hip pain. The patient does not have a fracture. The patient will have tramadol and Tylenol available for pain control. 12. DVT prophylaxis. The patient will be started on heparin subcu. She is a high risk. 13. Code status. The patient states she would like to be a full code. The patient's daughter states that she has previously had a MOLST form filled out. The patient will be a full code at this time. TIME SPENT: Approximately 60 minutes was spent on this admission, 30 of which was spent [id number] with the patient obtaining history and physical and discussing treatment plan. This plan has been discussed with my attending, Dr. Axel Hendrix; he is in agreement. ADDENDUM: The implantation of a pacemaker was discussed at length with the patient's daughter Patricia and son Noah and they have strong reservations about implanting a pacemaker in their mother as well as her capacity to make medical decisions for herself. On reexamination of the patient later in the evening, patient was much more confused. Consideration of a formal competency evaluation should be made before going forward with pacemaker implantation as there appears to be disagreement between the patient and her designated surrogate decision makers on this matter. SUSAN OLSEN [id number]/[facility] #: [id number] LIV
[2017-08-24] MEDS: Levothyroxine TAB* 125 MCG TAB PO SCH (05:43)
[2017-08-24] MEDS: Heparin VIAL(*) 5000 UNITS/ML VIAL (FIVE THOUSAND) SUBCUT SCH ×3 (05:44→21:16)
[2017-08-24 06:14] LABS: ABS Basophils 0.1 10^3/ul (0-0.2); ABS Eosinophils 0.2 10^3/ul (0-0.6); ABS Lymphocytes 1.2 10^3/ul (1.0-4.8); ABS Monocytes 0.7 10^3/ul (0-0.8); ABS Neutrophils 5.1 10^3/ul (1.5-7.7); ABS Nucleated RBC 0 10^3/ul; Eosinophil % 2.8 % (0-6); Hematocrit 40 % (35-47); Hemoglobin 13.5 g/dl (12.0-16.0); Lymphocyte % 16.6 % (25-47); Mean Corpuscular HGB Conc 34 g/dl (31-36); Mean Corpuscular Hemoglobin 31 pg (27-31); Mean Corpuscular Volume 93 fL (80-97); Mean Platelet Volume 8.4 um3 (7.4-10.4); Nucleated Red Blood Cells % 0; Platelet Count 180 10^3/ul (150-450); Red Blood Count 4.32 10^6/ul (4.0-5.4); Red Cell Distribution Width 14 % (10.5-15); White Blood Count 7.3 10^3/ul (3.5-10.8)
[2017-08-24 06:30] LABS: EGFR Non-African American 56.6 (>60)
[2017-08-24] MEDS: Multivitamins/Minera Areds(NF) 1 CAP CAP PO SCH ×2 (09:11→21:17)
[2017-08-24] MEDS: Calcium Carbonate TAB* 1250 MG (CALCIUM 500 MG) PO SCH (09:14)
[2017-08-24] MEDS: amLODIPine TAB* 5 MG PO SCH (09:14)
[2017-08-24] MEDS: BuPROPion XL* 150 MG TAB.XL PO SCH (09:14)
[2017-08-24] MEDS: Omeprazole CAP* 20 MG PO SCH (09:14)
[2017-08-24] MEDS: Mupirocin 2% OINT* TUBE TOPICAL SCH ×2 (11:13→21:16)
--- NOTE | 2017-08-24 16:19 | PN ---
Subjective Date of Service: 08/24/17 Interval History: Yesterda y Pt discussed with Dr. Abernathy and wanted to proceed with PPM. Daughter Patricia [place] at bedside today and is till weighing pros and cons. Pt up to chair. Denies chest pain, shortness of breath or palpitations. Objective Active Medications: Acetaminophen (Tylenol Tab*) 650 mg PO Q6H PRN PRN Reason: FEVER/PAIN Last Admin: 08/23/17 20:51 Dose: 650 mg Amlodipine Besylate (Norvasc Tab*) 5 mg PO DAILY [facility] Last Admin: 08/24/17 09:14 Dose: 5 mg Atorvastatin Calcium (Lipitor*) 10 mg PO QPM [facility] Last Admin: 08/23/17 20:51 Dose: 10 mg Bupropion HCl (Wellbutrin Xl *) 150 mg PO DAILY [facility] PRN Reason: Protocol Last Admin: 08/24/17 09:14 Dose: 150 mg Calcium Carbonate (Calcium Carbonate Tab*) 1,250 mg PO DAILY [facility] Last Admin: 08/24/17 09:14 Dose: 1,250 mg Citalopram Hydrobromide (Celexa Tab*) 20 mg PO QPM [facility] Last Admin: 08/23/17 20:51 Dose: 20 mg Diphenoxylate HCl/Atropine (Lomotil Tab*) 1 tab PO BID PRN PRN Reason: DIARRHEA Heparin Sodium (Porcine) (Heparin Vial(*)) 5,000 units SUBCUT Q8HR [facility] Last Admin: 08/24/17 13:51 Dose: 5,000 units Hydralazine HCl (Apresoline Iv*) 5 mg IV SLOW PU Q6H PRN PRN Reason: SYSTOLIC BP GREATER THAN: Last Admin: 08/23/17 17:41 Dose: 5 mg Levothyroxine Sodium (Synthroid Tab*) 125 mcg PO 0600 [facility] Last Admin: 08/24/17 05:43 Dose: 125 mcg [place] Carbonate ([place] Carbonate Er Tab*) 450 mg PO QPM [facility] Last Admin: 08/23/17 20:50 Dose: 450 mg Multivitamins/Minerals (Preservision Areds(Multivitamins/Mineral)(Nf)) 1 cap PO BID [facility] Last Admin: 08/24/17 09:11 Dose: Not Given Mupirocin (Bactroban 2 % Oint*) 1 applic TOPICAL BID [facility] Last Admin: 05/12/18 11:13 Dose: 1 applic Omeprazole (Prilosec Cap*) 20 mg PO DAILY [facility] Last Admin: 08/24/17 09:14 Dose: 20 mg Ondansetron HCl (Zofran Inj*) 4 mg IV Q6H PRN PRN Reason: NAUSEA Quetiapine Fumarate (Seroquel Tab*) 100 mg PO BEDTIME [facility] Last Admin: 08/23/17 19:16 Dose: 100 mg Tramadol HCl (Ultram*) 50 mg PO Q6H PRN PRN Reason: PAIN Vital Signs - 8 hr 08/24/17 08/24/17 11:31 15:13 Temperature 98.0 F 98.6 F Pulse Rate 70 70 Respiratory 16 18 Rate Blood Pressure 153/91 146/75 (mmHg) O2 Sat by Pulse 97 94 Oximetry Oxygen Devices in Use Now: None Appearance: NAD, lying in bed Eyes: No Scleral Icterus, PERRLA Ears/Nose/Mouth/Throat: NL Teeth, Lips, Gums Neck: NL Appearance and Movements; NL JVP, Trachea Midline Respiratory: Symmetrical Chest Expansion and Respiratory Effort, Clear to Auscultation Extremities: No Edema Skin: No Rash or Ulcers Neurological: NL Sensation, - - oriented to situation and hospital but not year. Intention tremor on FTN Nutrition: Taking PO's Result Diagrams: 08/24/17 06:07 08/24/17 06:07 Additional Lab and Data: Laboratory Results - last 24 hr 08/23/17 08/23/17 08/23/17 14:26 17:56 20:43 WBC RBC Hgb Hct MCV MCH MCHC RDW Plt Count MPV Neut % (Auto) Lymph % (Auto) [place] % (Auto) Eos % (Auto) Baso % (Auto) Absolute Neuts (auto) Absolute Lymphs (auto) Absolute Monos (auto) Absolute Eos (auto) Absolute Basos (auto) Absolute Nucleated RBC Nucleated RBC % Sodium 140 Potassium 4.3 Chloride 110 Carbon Dioxide 23 Anion Gap 7 BUN 23 Creatinine 0.94 Est GFR ( Amer) 73.7 Est GFR (Non-Af Amer) 57.3 BUN/Creatinine Ratio 24.5 H Glucose 101 H Calcium 9.4 Magnesium 2.0 Total Bilirubin 0.40 AST 17 ALT 13 Alkaline Phosphatase 69 Troponin I 0.02 0.02 0.02 Total Protein 6.3 L Albumin 4.2 Globulin 2.1 Albumin/Globulin Ratio 2.0 Triglycerides Cholesterol LDL Cholesterol HDL Cholesterol TSH 0.99 [place] 0.50 L 08/24/17 08/24/17 06:07 06:07 WBC 7.3 RBC 4.32 Hgb 13.5 Hct 40 MCV 93 MCH 31 MCHC 34 RDW 14 Plt Count 180 MPV 8.4 Neut % (Auto) 70.5 Lymph % (Auto) 16.6 L [place] % (Auto) 9.0 H Eos % (Auto) 2.8 Baso % (Auto) 1.1 Absolute Neuts (auto) 5.1 Absolute Lymphs (auto) 1.2 Absolute Monos (auto) 0.7 Absolute Eos (auto) 0.2 Absolute Basos (auto) 0.1 Absolute Nucleated RBC 0 Nucleated RBC % 0 Sodium 141 Potassium 3.9 Chloride 109 Carbon Dioxide 25 Anion Gap 7 BUN 19 Creatinine 0.95 Est GFR ( Amer) 72.8 Est GFR (Non-Af Amer) 56.6 BUN/Creatinine Ratio 20.0 Glucose 92 Calcium 9.6 Magnesium 2.0 Total Bilirubin AST ALT Alkaline Phosphatase Troponin I Total Protein Albumin Globulin Albumin/Globulin Ratio Triglycerides 143 Cholesterol 167 LDL Cholesterol 97 HDL Cholesterol 41.2 TSH [place] Assess/Plan/Problems-Billing Assessment: 82 yo female PMH dementia, HTN, LBBB alternating with RBBB, bipolar do on longstanding lithium p/w with recurrent falls. Cardiology has recommend PPM as outpatient. - Patient Problems (1) Syncope Current Visit: No Status: Acute Code(s): R55 - SYNCOPE AND COLLAPSE SNOMED Code(s): 693189661 Comment: Pt has been recommended to get PPM by Dr. Valleoj as oupatient. Dr. Abernathy again discussed with patient on 08/23 and Pt was wanting to proceed. Her daughter however is still mulling over pros/cons. Follow-up with Daughter again tomorrow. (2) LBBB (left bundle branch block) Current Visit: No Status: Acute Code(s): I44.7 - LEFT BUNDLE-BRANCH BLOCK, UNSPECIFIED SNOMED Code(s): 05316707 Comment: also seen Mar 2017. (3) hypertension Current Visit: No Status: Acute Comment: amlodipine 5mg started this admission. better control SBP 140s from 180-200s on admission. (4) Fall Current Visit: No Status: Resolved Comment: recurrent. Happened in Mar 2017 as well. Physical therapy PPM if daughter consents. (5) Bipolar disorder Current Visit: Yes Status: Acute Comment: continue lithium, wellbutrin. (6) Hypothyroidism Current Visit: Yes Status: Acute Code(s): E03.9 - HYPOTHYROIDISM, UNSPECIFIED SNOMED Code(s): 98756556 Comment: TSH wnl continue 125mcg synthroid. Status and Disposition: medicine inpatient. possible PPM 08/26. Otherwise awaiting PT eval. from [facility]
[2017-08-24] MEDS: Atorvastatin* 10 MG TAB PO SCH (17:46)
[2017-08-24] MEDS: Lithium Carbonate ER* 450 MG TAB.ER PO SCH (17:47)
[2017-08-24] MEDS: Citalopram TAB* 20 MG PO SCH (17:47)
[2017-08-24] MEDS: QUEtiapine TAB* 100 MG PO SCH (21:16)
[2017-08-25] MEDS: Heparin VIAL(*) 5000 UNITS/ML VIAL (FIVE THOUSAND) SUBCUT SCH ×3 (05:47→21:04)
[2017-08-25] MEDS: Levothyroxine TAB* 125 MCG TAB PO SCH (05:48)
[2017-08-25] MEDS: Calcium Carbonate TAB* 1250 MG (CALCIUM 500 MG) PO SCH (08:21)
[2017-08-25] MEDS: Omeprazole CAP* 20 MG PO SCH (08:21)
[2017-08-25] MEDS: amLODIPine TAB* 5 MG PO SCH (08:21)
[2017-08-25] MEDS: Multivitamins/Minera Areds(NF) 1 CAP CAP PO SCH ×2 (08:22→21:00)
[2017-08-25] MEDS: BuPROPion XL* 150 MG TAB.XL PO SCH (08:22)
--- NOTE | 2017-08-25 09:53 | PN ---
Subjective Date of Service: 08/25/17 Interval History: Mrs. Camarena is doing well today. She has no complaints. She ate her breakfast, slept well last night. Denies chest pain, palpitations, dizziness or blurred vision. She is agreeable to proceed with PPM placement, however, she tells me that her daughter, Patricia, does not agree with the plan due to more risks that benefits involved. I did contact her daughter, who eventually came to visit. We had a long discussion regarding benefits and risks of PPM placement. Daughter is leaning more towards proceeding with procedure since it's what her mother wishes. She informs me that she will need to discuss issue with her brother before making a final decision. Family History: Unchanged from Admission Social History: Unchanged from Admission Past Medical History: Unchanged from Admission Objective Active Medications: Acetaminophen (Tylenol Tab*) 650 mg PO Q6H PRN PRN Reason: FEVER/PAIN Last Admin: 08/23/17 20:51 Dose: 650 mg Amlodipine Besylate (Norvasc Tab*) 5 mg PO DAILY [facility] Last Admin: 08/25/17 08:21 Dose: 5 mg Atorvastatin Calcium (Lipitor*) 10 mg PO QPM [facility] Last Admin: 08/24/17 17:46 Dose: 10 mg Bupropion HCl (Wellbutrin Xl *) 150 mg PO DAILY [facility] PRN Reason: Protocol Last Admin: 08/25/17 08:22 Dose: 150 mg Calcium Carbonate (Calcium Carbonate Tab*) 1,250 mg PO DAILY [facility] Last Admin: 08/25/17 08:21 Dose: 1,250 mg Citalopram Hydrobromide (Celexa Tab*) 20 mg PO QPM [facility] Last Admin: 08/24/17 17:47 Dose: 20 mg Diphenoxylate HCl/Atropine (Lomotil Tab*) 1 tab PO BID PRN PRN Reason: DIARRHEA Heparin Sodium (Porcine) (Heparin Vial(*)) 5,000 units SUBCUT Q8HR [facility] Last Admin: 08/25/17 05:47 Dose: 5,000 units Hydralazine HCl (Apresoline Iv*) 5 mg IV SLOW PU Q6H PRN PRN Reason: SYSTOLIC BP GREATER THAN: Last Admin: 08/23/17 17:41 Dose: 5 mg Levothyroxine Sodium (Synthroid Tab*) 125 mcg PO 0600 [facility] Last Admin: 08/25/17 05:48 Dose: 125 mcg [place] Carbonate ([place] Carbonate Er Tab*) 450 mg PO QPM [facility] Last Admin: 08/24/17 17:47 Dose: 450 mg Multivitamins/Minerals (Preservision Areds(Multivitamins/Mineral)(Nf)) 1 cap PO BID [facility] Last Admin: 08/25/17 08:22 Dose: Not Given Mupirocin (Bactroban 2 % Oint*) 1 applic TOPICAL BID [facility] Last Admin: 08/24/17 21:16 Dose: 1 applic Omeprazole (Prilosec Cap*) 20 mg PO DAILY [facility] Last Admin: 08/25/17 08:21 Dose: 20 mg Ondansetron HCl (Zofran Inj*) 4 mg IV Q6H PRN PRN Reason: NAUSEA Quetiapine Fumarate (Seroquel Tab*) 100 mg PO BEDTIME [facility] Last Admin: 08/24/17 21:16 Dose: 100 mg Tramadol HCl (Ultram*) 50 mg PO Q6H PRN PRN Reason: PAIN Vital Signs - 8 hr 08/25/17 08/25/17 03:36 07:49 Temperature 97.8 F 97.8 F Pulse Rate 61 61 Respiratory 16 16 Rate Blood Pressure 154/86 143/108 (mmHg) O2 Sat by Pulse 94 Oximetry Oxygen Devices in Use Now: None Appearance: Appears comfortable and in NAD Eyes: No Scleral Icterus, PERRLA Ears/Nose/Mouth/Throat: Clear Oropharnyx, Mucous Membranes Moist Neck: NL Appearance and Movements; NL JVP, Trachea Midline Respiratory: Symmetrical Chest Expansion and Respiratory Effort, Clear to Auscultation Cardiovascular: NL Sounds; No Murmurs; No JVD, RRR Abdominal: NL Sounds; No Tenderness; No Distention Extremities: No Edema Skin: No Rash or Ulcers Neurological: Alert and Oriented x 3, NL Sensation, NL Muscle Strength and Tone Nutrition: Taking PO's Result Diagrams: 08/24/17 06:07 08/24/17 06:07 Additional Lab and Data: Laboratory Results - last 24 hr 08/23/17 08/23/17 08/23/17 14:26 17:56 20:43 WBC RBC Hgb Hct MCV MCH MCHC RDW Plt Count MPV Neut % (Auto) Lymph % (Auto) [place] % (Auto) Eos % (Auto) Baso % (Auto) Absolute Neuts (auto) Absolute Lymphs (auto) Absolute Monos (auto) Absolute Eos (auto) Absolute Basos (auto) Absolute Nucleated RBC Nucleated RBC % Sodium 140 Potassium 4.3 Chloride 110 Carbon Dioxide 23 Anion Gap 7 BUN 23 Creatinine 0.94 Est GFR ( Amer) 73.7 Est GFR (Non-Af Amer) 57.3 BUN/Creatinine Ratio 24.5 H Glucose 101 H Calcium 9.4 Magnesium 2.0 Total Bilirubin 0.40 AST 17 ALT 13 Alkaline Phosphatase 69 Troponin I 0.02 0.02 0.02 Total Protein 6.3 L Albumin 4.2 Globulin 2.1 Albumin/Globulin Ratio 2.0 Triglycerides Cholesterol LDL Cholesterol HDL Cholesterol TSH 0.99 [place] 0.50 L 08/24/17 08/24/17 06:07 06:07 WBC 7.3 RBC 4.32 Hgb 13.5 Hct 40 MCV 93 MCH 31 MCHC 34 RDW 14 Plt Count 180 MPV 8.4 Neut % (Auto) 70.5 Lymph % (Auto) 16.6 L [place] % (Auto) 9.0 H Eos % (Auto) 2.8 Baso % (Auto) 1.1 Absolute Neuts (auto) 5.1 Absolute Lymphs (auto) 1.2 Absolute Monos (auto) 0.7 Absolute Eos (auto) 0.2 Absolute Basos (auto) 0.1 Absolute Nucleated RBC 0 Nucleated RBC % 0 Sodium 141 Potassium 3.9 Chloride 109 Carbon Dioxide 25 Anion Gap 7 BUN 19 Creatinine 0.95 Est GFR ( Amer) 72.8 Est GFR (Non-Af Amer) 56.6 BUN/Creatinine Ratio 20.0 Glucose 92 Calcium 9.6 Magnesium 2.0 Total Bilirubin AST ALT Alkaline Phosphatase Troponin I Total Protein Albumin Globulin Albumin/Globulin Ratio Triglycerides 143 Cholesterol 167 LDL Cholesterol 97 HDL Cholesterol 41.2 TSH [place] Assess/Plan/Problems-Billing Assessment: 82 yo female PMH dementia, HTN, LBBB alternating with RBBB, bipolar do on longstanding lithium p/w with recurrent falls. Cardiology has recommend PPM as outpatient, could potentially proceed with it tomorrow if daughter and son agree to plans. - Patient Problems (1) Syncope Current Visit: Yes Status: Acute Priority: High Comment: - Pt has been recommended to get PPM by Dr. Vallejo as oupatient. Dr. Abernathy again discussed with patient on 08/23 and Pt was wanting to proceed. Her daughter however is still mulling over pros/cons. - This was addressed in a great length with daughter, Patricia, who again continues stalling the process. She is leaning more towards proceeding with pacemaker placement, but would like to discuss it with her brother. - Will keep her NPO after midnight, get labs in AM in preparation for possible pacemaker placement (2) LBBB (left bundle branch block) Current Visit: No Status: Acute Comment: - also seen Mar 2017. (3) Fall Current Visit: No Status: Resolved Comment: - recurrent. Happened in Mar 2017 as well. - Physical therapy - PPM if daughter consents. (4) Bipolar disorder Current Visit: No Status: Chronic Comment: - continue lithium, wellbutrin. (5) Hypothyroidism Current Visit: No Status: Chronic Comment: - TSH wnl - continue 125mcg synthroid. (6) hypertension Current Visit: No Status: Acute Comment: - amlodipine 5mg started this admission. - better control SBP 140s from 180-200s on admission. (7) DVT prophylaxis Current Visit: Yes Status: Acute Comment: - SCD (8) Full code status Current Visit: Yes Status: Acute Status and Disposition: medicine inpatient. possible PPM 08/26. Otherwise awaiting PT jessika. from [facility]
[2017-08-25] MEDS: Mupirocin 2% OINT* TUBE TOPICAL SCH ×2 (11:24→21:00)
[2017-08-25] MEDS: Citalopram TAB* 20 MG PO SCH (17:36)
[2017-08-25] MEDS: Atorvastatin* 10 MG TAB PO SCH (17:36)
[2017-08-25] MEDS: Lithium Carbonate ER* 450 MG TAB.ER PO SCH (17:37)
[2017-08-25] MEDS: QUEtiapine TAB* 100 MG PO SCH (21:03)
[2017-08-26 05:55] LABS: ABS Basophils 0.1 10^3/ul (0-0.2); ABS Eosinophils 0.2 10^3/ul (0-0.6); ABS Lymphocytes 1.2 10^3/ul (1.0-4.8); ABS Monocytes 0.6 10^3/ul (0-0.8); ABS Neutrophils 6.8 10^3/ul (1.5-7.7); ABS Nucleated RBC 0 10^3/ul; Eosinophil % 2.6 % (0-6); Hematocrit 41 % (35-47); Hemoglobin 13.7 g/dl (12.0-16.0); Lymphocyte % 13.3 % (25-47); Mean Corpuscular HGB Conc 34 g/dl (31-36); Mean Corpuscular Hemoglobin 31 pg (27-31); Mean Corpuscular Volume 93 fL (80-97); Mean Platelet Volume 8.7 um3 (7.4-10.4); Nucleated Red Blood Cells % 0.1; Platelet Count 193 10^3/ul (150-450); Red Blood Count 4.43 10^6/ul (4.0-5.4); Red Cell Distribution Width 13 % (10.5-15); White Blood Count 8.9 10^3/ul (3.5-10.8)
[2017-08-26] MEDS: Acetaminophen TAB* 325 MG PO PRN ×3 (05:55→21:04)
[2017-08-26] MEDS: Levothyroxine TAB* 125 MCG TAB PO SCH (05:55)
[2017-08-26] MEDS: Heparin VIAL(*) 5000 UNITS/ML VIAL (FIVE THOUSAND) SUBCUT SCH ×3 (05:56→21:05)
[2017-08-26 06:01] LABS: INR 0.9 (0.77-1.02)
[2017-08-26 06:21] LABS: EGFR Non-African American 55.3 (>60)
[2017-08-26] MEDS: Multivitamins/Minera Areds(NF) 1 CAP CAP PO SCH ×2 (08:07→21:04)
[2017-08-26] MEDS: Omeprazole CAP* 20 MG PO SCH (08:11)
[2017-08-26] MEDS: BuPROPion XL* 150 MG TAB.XL PO SCH (08:11)
[2017-08-26] MEDS: Calcium Carbonate TAB* 1250 MG (CALCIUM 500 MG) PO SCH (08:11)
[2017-08-26] MEDS: amLODIPine TAB* 5 MG PO SCH (08:11)
[2017-08-26] MEDS: Mupirocin 2% OINT* TUBE TOPICAL SCH ×2 (08:14→21:04)
[2017-08-26] MEDS: Lithium Carbonate ER* 450 MG TAB.ER PO SCH (17:31)
[2017-08-26] MEDS: Citalopram TAB* 20 MG PO SCH (17:31)
[2017-08-26] MEDS: Atorvastatin* 10 MG TAB PO SCH (17:31)
--- NOTE | 2017-08-26 19:01 | PN ---
Subjective Date of Service: 08/26/17 Interval History: Julianne continues to do well. She was scheduled for PPM placement today, daughter was hesitant to proceed. A meeting arranged including patient, her daughter, Patricia and Dr. Sherman. Risks and benefits once again discussed. Plans finalized to proceed with pacemaker placement tomorrow. Patient denies any chest pain, palpitations or SOB. Family History: Unchanged from Admission Social History: Unchanged from Admission Past Medical History: Unchanged from Admission Objective Active Medications: Acetaminophen (Tylenol Tab*) 650 mg PO Q6H PRN PRN Reason: FEVER/PAIN Last Admin: 08/26/17 13:07 Dose: 650 mg Amlodipine Besylate (Norvasc Tab*) 5 mg PO DAILY [facility] Last Admin: 08/26/17 08:11 Dose: 5 mg Atorvastatin Calcium (Lipitor*) 10 mg PO QPM [facility] Last Admin: 08/26/17 17:31 Dose: 10 mg Bupropion HCl (Wellbutrin Xl *) 150 mg PO DAILY [facility] PRN Reason: Protocol Last Admin: 08/26/17 08:11 Dose: 150 mg Calcium Carbonate (Calcium Carbonate Tab*) 1,250 mg PO DAILY [facility] Last Admin: 08/26/17 08:11 Dose: 1,250 mg Citalopram Hydrobromide (Celexa Tab*) 20 mg PO QPM [facility] Last Admin: 08/26/17 17:31 Dose: 20 mg Diphenoxylate HCl/Atropine (Lomotil Tab*) 1 tab PO BID PRN PRN Reason: DIARRHEA Heparin Sodium (Porcine) (Heparin Vial(*)) 5,000 units SUBCUT Q8HR [facility] Last Admin: 08/26/17 13:07 Dose: 5,000 units Hydralazine HCl (Apresoline Iv*) 5 mg IV SLOW PU Q6H PRN PRN Reason: SYSTOLIC BP GREATER THAN: Last Admin: 08/23/17 17:41 Dose: 5 mg Clindamycin HCl/Dextrose (Cleocin 900 Mg Ivpremix (*) Sdv) 900 mg in 50 mls @ 100 mls/hr IV ONCE ONE Stop: 08/27/17 09:41 Sodium Chloride (Ns 0.9% 1000 Ml*) 1,000 mls @ 75 mls/hr IV PER RATE [facility] Levothyroxine Sodium (Synthroid Tab*) 125 mcg PO 0600 [facility] Last Admin: 08/26/17 05:55 Dose: 125 mcg [place] Carbonate ([place] Carbonate Er Tab*) 450 mg PO QPM [facility] Last Admin: 08/26/17 17:31 Dose: 450 mg Multivitamins/Minerals (Preservision Areds(Multivitamins/Mineral)(Nf)) 1 cap PO BID [facility] Last Admin: 08/26/17 08:07 Dose: Not Given Mupirocin (Bactroban 2 % Oint*) 1 applic TOPICAL BID [facility] Last Admin: 08/26/17 08:14 Dose: Not Given Omeprazole (Prilosec Cap*) 20 mg PO DAILY [facility] Last Admin: 08/26/17 08:11 Dose: 20 mg Ondansetron HCl (Zofran Inj*) 4 mg IV Q6H PRN PRN Reason: NAUSEA Quetiapine Fumarate (Seroquel Tab*) 100 mg PO BEDTIME [facility] Last Admin: 08/25/17 21:03 Dose: 100 mg Tramadol HCl (Ultram*) 50 mg PO Q6H PRN PRN Reason: PAIN Vital Signs - 8 hr 08/26/17 08/26/17 08/26/17 11:19 15:12 15:20 Temperature 97.8 F 98.2 F Pulse Rate 87 75 Respiratory 15 18 20 Rate Blood Pressure 135/85 138/75 (mmHg) O2 Sat by Pulse 98 95 Oximetry Oxygen Devices in Use Now: None Appearance: Appears comfortable and in NAD. Eyes: No Scleral Icterus, PERRLA Ears/Nose/Mouth/Throat: Clear Oropharnyx, Mucous Membranes Moist Neck: NL Appearance and Movements; NL JVP, Trachea Midline Respiratory: Symmetrical Chest Expansion and Respiratory Effort, Clear to Auscultation Cardiovascular: NL Sounds; No Murmurs; No JVD, RRR Abdominal: NL Sounds; No Tenderness; No Distention Extremities: No Edema Skin: No Rash or Ulcers Neurological: Alert and Oriented x 3, NL Sensation, NL Muscle Strength and Tone Nutrition: Taking PO's Result Diagrams: 08/26/17 05:37 08/26/17 05:37 Additional Lab and Data: Laboratory Results - last 24 hr 08/23/17 08/23/17 08/23/17 14:26 17:56 20:43 WBC RBC Hgb Hct MCV MCH MCHC RDW Plt Count MPV Neut % (Auto) Lymph % (Auto) [place] % (Auto) Eos % (Auto) Baso % (Auto) Absolute Neuts (auto) Absolute Lymphs (auto) Absolute Monos (auto) Absolute Eos (auto) Absolute Basos (auto) Absolute Nucleated RBC Nucleated RBC % Sodium 140 Potassium 4.3 Chloride 110 Carbon Dioxide 23 Anion Gap 7 BUN 23 Creatinine 0.94 Est GFR ( Amer) 73.7 Est GFR (Non-Af Amer) 57.3 BUN/Creatinine Ratio 24.5 H Glucose 101 H Calcium 9.4 Magnesium 2.0 Total Bilirubin 0.40 AST 17 ALT 13 Alkaline Phosphatase 69 Troponin I 0.02 0.02 0.02 Total Protein 6.3 L Albumin 4.2 Globulin 2.1 Albumin/Globulin Ratio 2.0 Triglycerides Cholesterol LDL Cholesterol HDL Cholesterol TSH 0.99 [place] 0.50 L 08/24/17 08/24/17 06:07 06:07 WBC 7.3 RBC 4.32 Hgb 13.5 Hct 40 MCV 93 MCH 31 MCHC 34 RDW 14 Plt Count 180 MPV 8.4 Neut % (Auto) 70.5 Lymph % (Auto) 16.6 L [place] % (Auto) 9.0 H Eos % (Auto) 2.8 Baso % (Auto) 1.1 Absolute Neuts (auto) 5.1 Absolute Lymphs (auto) 1.2 Absolute Monos (auto) 0.7 Absolute Eos (auto) 0.2 Absolute Basos (auto) 0.1 Absolute Nucleated RBC 0 Nucleated RBC % 0 Sodium 141 Potassium 3.9 Chloride 109 Carbon Dioxide 25 Anion Gap 7 BUN 19 Creatinine 0.95 Est GFR ( Amer) 72.8 Est GFR (Non-Af Amer) 56.6 BUN/Creatinine Ratio 20.0 Glucose 92 Calcium 9.6 Magnesium 2.0 Total Bilirubin AST ALT Alkaline Phosphatase Troponin I Total Protein Albumin Globulin Albumin/Globulin Ratio Triglycerides 143 Cholesterol 167 LDL Cholesterol 97 HDL Cholesterol 41.2 TSH [place] Assess/Plan/Problems-Billing Assessment: 82 yo female PMH dementia, HTN, LBBB alternating with RBBB, bipolar do on longstanding lithium p/w with recurrent falls. Cardiology has recommend PPM as outpatient, plans for proceed with PPM placement tomorrow. - Patient Problems (1) Syncope Current Visit: Yes Status: Acute Priority: High Comment: - Pt has been recommended to get PPM by Dr. Vallejo as oupatient. Dr. Abernathy again discussed with patient on 08/23 and Pt was wanting to proceed. Her daughter however is still mulling over pros/cons. - This was addressed in a great length with daughter, Patricia, who agreed to proceed. - Will keep her NPO after midnight, get labs in AM in preparation for pacemaker placement (2) LBBB (left bundle branch block) Current Visit: No Status: Acute Comment: - also seen Mar 2017. (3) Fall Current Visit: No Status: Resolved Comment: - recurrent. Happened in Mar 2017 as well. - Physical therapy - PPM if daughter consents. (4) Bipolar disorder Current Visit: No Status: Chronic Comment: - continue lithium, wellbutrin. (5) Hypothyroidism Current Visit: No Status: Chronic Comment: - TSH wnl - continue 125mcg synthroid. (6) hypertension Current Visit: No Status: Acute Comment: - amlodipine 5mg started this admission. - better control SBP 140s from 180-200s on admission. (7) DVT prophylaxis Current Visit: Yes Status: Acute Comment: - SCD (8) Full code status Current Visit: Yes Status: Acute Status and Disposition: medicine inpatient, anticipate discharge when medically stable
[2017-08-26] MEDS: QUEtiapine TAB* 100 MG PO SCH (21:04)
[2017-08-26] MEDS ORDERED: NS 0.9% 1000 ML* 1,000 ML IV SCH (23:55)
[2017-08-27] MEDS: Heparin VIAL(*) 5000 UNITS/ML VIAL (FIVE THOUSAND) SUBCUT SCH ×3 (04:40→21:22)
[2017-08-27] MEDS: Levothyroxine TAB* 125 MCG TAB PO SCH (05:19)
[2017-08-27] MEDS: Acetaminophen TAB* 325 MG PO PRN (05:19)
[2017-08-27] MEDS: Calcium Carbonate TAB* 1250 MG (CALCIUM 500 MG) PO SCH (07:57)
[2017-08-27] MEDS: BuPROPion XL* 150 MG TAB.XL PO SCH (07:57)
[2017-08-27] MEDS: Omeprazole CAP* 20 MG PO SCH (07:58)
[2017-08-27] MEDS: amLODIPine TAB* 5 MG PO SCH (07:58)
[2017-08-27] MEDS: Mupirocin 2% OINT* TUBE TOPICAL SCH ×2 (08:01→21:22)
[2017-08-27] MEDS ORDERED: Clindamycin 900 MG IVPREMIX(* 900 MG/50 ML SDV IV ONE (09:12)
[2017-08-27] MEDS ORDERED: Midazolam* 1 MG/ML 5 ML VIAL (5 MG) ONE (09:33)
[2017-08-27] MEDS ORDERED: fentaNYL* 50 MCG/ML 2 ML VIAL (100 MCG VIAL) ONE (09:33)
[2017-08-27] MEDS ORDERED: Lidocaine 1% INJ* 10 MG/ML 30 ML SDV ONE (09:35)
[2017-08-27] MEDS: Multivitamins/Minera Areds(NF) 1 CAP CAP PO SCH ×2 (09:54→21:21)
--- NOTE | 2017-08-27 12:34 | RAD ---
HISTORY: Status post device implant COMPARISONS: August 23, 2017 VIEWS: 1: frontal portable view of the chest at 11:35 AM FINDINGS: LINES AND TUBES: A left-sided pacemaker is noted. CARDIOMEDIASTINAL SILHOUETTE: The aorta is tortuous. The cardiomediastinal silhouette is otherwise normal for portable technique. PLEURA: The costophrenic angles are sharp. No pleural abnormalities are noted. There is no appreciable pneumothorax. LUNG PARENCHYMA: The lungs are clear. ABDOMEN: The upper abdomen is clear. There is no subphrenic gas. BONES AND SOFT TISSUES: No bone or soft tissue abnormalities are noted. IMPRESSION: NO ACTIVE CARDIOPULMONARY DISEASE.
[2017-08-27] MEDS: Clindamycin CAP* 150 MG PO SCH ×2 (13:30→21:23)
[2017-08-27] MEDS ORDERED: Polyethylene Glycol 3350* 17 GM PACKET PO PRN (13:54)
--- NOTE | 2017-08-27 15:18 | PN ---
Subjective Date of Service: 08/27/17 Interval History: Mrs. Charles reports doing well today. She was seen and examined earlier this AM, and once again after her PPM placement. Denies any chest pain, palpitations, SOB or dizziness. She requested a bowel regimen for constipation, however denies abdominal pain, nausea or vomiting. Daughter in room, has no questions regarding procedure. She has no complaints today. Family History: Unchanged from Admission Social History: Unchanged from Admission Past Medical History: Unchanged from Admission Objective Active Medications: Acetaminophen (Tylenol Tab*) 650 mg PO Q6H PRN PRN Reason: FEVER/PAIN Last Admin: 08/27/17 05:19 Dose: 650 mg Amlodipine Besylate (Norvasc Tab*) 5 mg PO DAILY [facility] Last Admin: 08/27/17 07:58 Dose: 5 mg Atorvastatin Calcium (Lipitor*) 10 mg PO QPM [facility] Last Admin: 08/26/17 17:31 Dose: 10 mg Bupropion HCl (Wellbutrin Xl *) 150 mg PO DAILY [facility] PRN Reason: Protocol Last Admin: 08/27/17 07:57 Dose: 150 mg Calcium Carbonate (Calcium Carbonate Tab*) 1,250 mg PO DAILY [facility] Last Admin: 08/27/17 07:57 Dose: 1,250 mg Citalopram Hydrobromide (Celexa Tab*) 20 mg PO QPM [facility] Last Admin: 08/26/17 17:31 Dose: 20 mg Clindamycin HCl (Cleocin Cap*) 150 mg PO TID [facility] Stop: 08/29/17 23:59 Last Admin: 08/27/17 13:30 Dose: 150 mg Diphenoxylate HCl/Atropine (Lomotil Tab*) 1 tab PO BID PRN PRN Reason: DIARRHEA Heparin Sodium (Porcine) (Heparin Vial(*)) 5,000 units SUBCUT Q8HR [facility] Last Admin: 08/27/17 13:30 Dose: 5,000 units Hydralazine HCl (Apresoline Iv*) 5 mg IV SLOW PU Q6H PRN PRN Reason: SYSTOLIC BP GREATER THAN: Last Admin: 08/23/17 17:41 Dose: 5 mg Levothyroxine Sodium (Synthroid Tab*) 125 mcg PO 0600 [facility] Last Admin: 08/27/17 05:19 Dose: 125 mcg [place] Carbonate ([place] Carbonate Er Tab*) 450 mg PO QPM [facility] Last Admin: 08/26/17 17:31 Dose: 450 mg Multivitamins/Minerals (Preservision Areds(Multivitamins/Mineral)(Nf)) 1 cap PO BID [facility] Last Admin: 08/27/17 09:54 Dose: Not Given Mupirocin (Bactroban 2 % Oint*) 1 applic TOPICAL BID [facility] Last Admin: 08/27/17 08:01 Dose: 1 applic Omeprazole (Prilosec Cap*) 20 mg PO DAILY [facility] Last Admin: 08/27/17 07:58 Dose: 20 mg Ondansetron HCl (Zofran Inj*) 4 mg IV Q6H PRN PRN Reason: NAUSEA Polyethylene Glycol/Electrolytes (Miralax*) 17 gm PO DAILY PRN PRN Reason: CONSTIPATION Quetiapine Fumarate (Seroquel Tab*) 100 mg PO BEDTIME [facility] Last Admin: 08/26/17 21:04 Dose: 100 mg Tramadol HCl (Ultram*) 50 mg PO Q6H PRN PRN Reason: PAIN Vital Signs - 8 hr 08/27/17 08/27/17 08/27/17 07:40 08:00 11:06 Temperature 98.0 F Pulse Rate 62 70 Respiratory 15 16 Rate Blood Pressure 104/90 164/89 (mmHg) O2 Sat by Pulse 95 91 Oximetry 08/27/17 08/27/17 08/27/17 11:11 11:12 11:24 Temperature 97.5 F Pulse Rate 61 60 60 Respiratory 16 Rate Blood Pressure 164/89 154/83 (mmHg) O2 Sat by Pulse 90 89 94 Oximetry 08/27/17 08/27/17 08/27/17 11:36 11:42 12:00 Temperature 98.9 F Pulse Rate 62 Respiratory Rate Blood Pressure 161/80 (mmHg) O2 Sat by Pulse 91 92 Oximetry 08/27/17 08/27/17 08/27/17 12:06 12:12 12:43 Temperature Pulse Rate Respiratory Rate Blood Pressure 163/77 159/91 (mmHg) O2 Sat by Pulse 92 Oximetry 08/27/17 08/27/17 08/27/17 13:00 13:06 13:13 Temperature Pulse Rate 69 77 Respiratory Rate Blood Pressure 145/88 (mmHg) O2 Sat by Pulse 92 92 92 Oximetry 08/27/17 08/27/17 08/27/17 13:34 14:06 14:12 Temperature Pulse Rate 69 Respiratory Rate Blood Pressure 163/86 155/83 (mmHg) O2 Sat by Pulse 91 92 Oximetry Oxygen Devices in Use Now: None Appearance: Appears comfortable and in NAD. Eyes: No Scleral Icterus, PERRLA Ears/Nose/Mouth/Throat: Clear Oropharnyx, Mucous Membranes Moist Neck: NL Appearance and Movements; NL JVP, Trachea Midline Respiratory: Symmetrical Chest Expansion and Respiratory Effort, Clear to Auscultation, - - Right upper chest wall with a clean and dry dressing. No tenderness, swelling or ecchymosis. Cardiovascular: NL Sounds; No Murmurs; No JVD, RRR Abdominal: NL Sounds; No Tenderness; No Distention Lymphatic: No Cervical Adenopathy Extremities: No Edema Skin: No Rash or Ulcers Neurological: Alert and Oriented x 3, NL Sensation, NL Muscle Strength and Tone Nutrition: Taking PO's Result Diagrams: 08/26/17 05:37 08/26/17 05:37 Additional Lab and Data: Laboratory Results - last 24 hr 08/23/17 08/23/17 08/23/17 14:26 17:56 20:43 WBC RBC Hgb Hct MCV MCH MCHC RDW Plt Count MPV Neut % (Auto) Lymph % (Auto) [place] % (Auto) Eos % (Auto) Baso % (Auto) Absolute Neuts (auto) Absolute Lymphs (auto) Absolute Monos (auto) Absolute Eos (auto) Absolute Basos (auto) Absolute Nucleated RBC Nucleated RBC % Sodium 140 Potassium 4.3 Chloride 110 Carbon Dioxide 23 Anion Gap 7 BUN 23 Creatinine 0.94 Est GFR ( Amer) 73.7 Est GFR (Non-Af Amer) 57.3 BUN/Creatinine Ratio 24.5 H Glucose 101 H Calcium 9.4 Magnesium 2.0 Total Bilirubin 0.40 AST 17 ALT 13 Alkaline Phosphatase 69 Troponin I 0.02 0.02 0.02 Total Protein 6.3 L Albumin 4.2 Globulin 2.1 Albumin/Globulin Ratio 2.0 Triglycerides Cholesterol LDL Cholesterol HDL Cholesterol TSH 0.99 [place] 0.50 L Microbiology and Other Data: . Diagnostic Imaging: Patient Name: GABE CHARLES Medical Record#: [id number] Ordering Physician: Herberth Sherman MD Acct.#: [id number] : 1935 Age: 82 Sex: F Location: [address] [place] [address] MEDICAL/TELEMETRY Exam Date: 08/27/17 1037 ADM Status: ADM IN Order Information: CHEST AP PORTABLE Accession Number: [id number] CPT: 10818 HISTORY: Status post device implant COMPARISONS: August 23, 2017 VIEWS: 1: frontal portable view of the chest at 11:35 AM FINDINGS: LINES AND TUBES: A left-sided pacemaker is noted. CARDIOMEDIASTINAL SILHOUETTE: The aorta is tortuous. The cardiomediastinal silhouette is otherwise normal for portable technique. PLEURA: The costophrenic angles are sharp. No pleural abnormalities are noted. There is no appreciable pneumothorax. LUNG PARENCHYMA: The lungs are clear. ABDOMEN: The upper abdomen is clear. There is no subphrenic gas. BONES AND SOFT TISSUES: No bone or soft tissue abnormalities are noted. IMPRESSION: NO ACTIVE CARDIOPULMONARY DISEASE. <Electronically signed by Simba Hopper MD in OV> 08/27/17 1230 Dictated By: Simba Hopper MD EKG Data: EKG INTERPRETATION ECG Report Patient Name GABE CHARLES Birthdate 1935 Sex F Order Number [id number] Date of ECG 08/27/2017 10:56:29 Interpretation Atrial-ventricular dual-paced rhythm No further analysis attempted due to paced rhythm - ABNORMAL ECG - ECG NEEDS E-SIGNING Assess/Plan/Problems-Billing Assessment: 82 yo female PMH dementia, HTN, LBBB alternating with RBBB, bipolar do on longstanding lithium p/w with recurrent falls. Cardiology has recommend PPM as outpatient, which was successfully done today. - Patient Problems (1) Syncope Current Visit: Yes Status: Acute Priority: High Comment: - Pt has been recommended to get PPM by Dr. Vallejo as oupatient. Dr. Abernathy again discussed with patient on 08/23 and Pt was wanting to proceed. Her daughter however is still mulling over pros/cons. - This was addressed in a great length with daughter, Patricia, who agreed to proceed. - She is s/p PPM placement on 08/27 (2) LBBB (left bundle branch block) Current Visit: No Status: Acute Comment: - also seen Mar 2017. (3) Fall Current Visit: No Status: Resolved Comment: - recurrent. Happened in Mar 2017 as well. - Physical therapy - PPM if daughter consents. (4) Bipolar disorder Current Visit: No Status: Chronic Comment: - continue lithium, wellbutrin. (5) Hypothyroidism Current Visit: No Status: Chronic Comment: - TSH wnl - continue 125mcg synthroid. (6) hypertension Current Visit: No Status: Acute Comment: - amlodipine 5mg started this admission. - better control SBP 140s from 180-200s on admission. (7) DVT prophylaxis Current Visit: Yes Status: Acute Comment: - SCD (8) Full code status Current Visit: Yes Status: Acute Status and Disposition: medicine inpatient, will be monitored tonight and likely to be discharged tomorrow
[2017-08-27] MEDS: Atorvastatin* 10 MG TAB PO SCH (17:26)
[2017-08-27] MEDS: Lithium Carbonate ER* 450 MG TAB.ER PO SCH (17:26)
[2017-08-27] MEDS: Citalopram TAB* 20 MG PO SCH (17:26)
[2017-08-27] MEDS: QUEtiapine TAB* 100 MG PO SCH (21:23)
[2017-08-28] MEDS: Levothyroxine TAB* 125 MCG TAB PO SCH (05:52)
[2017-08-28] MEDS: Heparin VIAL(*) 5000 UNITS/ML VIAL (FIVE THOUSAND) SUBCUT SCH (05:52)
--- NOTE | 2017-08-28 08:28 | RAD ---
INDICATION: Status post cardiac pacer placement COMPARISON: Chest x-ray August 27, 2017 TECHNIQUE: PA and lateral views of the chest were obtained. FINDINGS: Again seen is a left upper chest cardiac pacemaker with 2 leads overlying the heart. The heart and mediastinum are normal in size and contour. There is no pneumothorax. The lungs are grossly clear. There is no evidence of large pleural effusion. Visualized bones are normal for the patient's age. There is no radiographic evidence of free air beneath the diaphragm IMPRESSION: NO RADIOGRAPHIC EVIDENCE OF ACUTE CARDIOPULMONARY DISEASE STATUS POST LEFT UPPER CHEST CARDIAC PACEMAKER PLACEMENT.
[2017-08-28] MEDS: BuPROPion XL* 150 MG TAB.XL PO SCH (08:36)
[2017-08-28] MEDS: amLODIPine TAB* 5 MG PO SCH (08:36)
[2017-08-28] MEDS: Omeprazole CAP* 20 MG PO SCH (08:37)
[2017-08-28] MEDS: Calcium Carbonate TAB* 1250 MG (CALCIUM 500 MG) PO SCH (08:37)
[2017-08-28] MEDS: Clindamycin CAP* 150 MG PO SCH (08:37)
[2017-08-28] MEDS: Multivitamins/Minera Areds(NF) 1 CAP CAP PO SCH (09:45)
[2017-08-28] MEDS: Mupirocin 2% OINT* TUBE TOPICAL SCH (11:03)
--- NOTE | 2017-08-28 11:50 | OP ---
CC: Dr. Vallejo OPERATIVE REPORT: DATE OF OPERATION: 08/27/17 DATE OF : 39 SURGEON: Herberth Sherman MD PRE-OP DIAGNOSES: 1. Syncope. 2. Right bundle-branch block/left bundle-branch block. OPERATIVE PROCEDURE: Dual-chamber pacemaker implantation. COMPLICATIONS: None. ESTIMATED BLOOD LOSS: Nil. INDICATIONS: The patient is an 82-year-old female who has been followed by Dr. Vallejo. She had bee n diagnosed with intermittent right bundle and left bundle- branch block. A pacemaker was recommende d in June. The patient was admitted to the hospital recently with a syncopal episode and at that ti nh, the patient and daughter agreed to dual-chamber pacemaker implantation. DESCRIPTION OF PROCEDURE: The patient was brought to the operating room in a fasting state. Informe d consent had been obtained prior to the procedure. All labs had been reviewed. The patient was tan cesar supine on the procedure table and her left deltopectoral area was cleaned and draped in the usual fashion. 1% lidocaine was used for local anesthesia. The axillary vein was entered by a modified S eldinger technique and a guidewire was placed. A 4-cm incision was made in the pectoral area and dee nt dissection was carried down to the pectoral fascia. A pocket was fashioned for the pacemaker. Over the guidewire, a second guidewire was placed with retained sheath. Over the first guidewire, a 7-Tajik sheath introducer was placed, through which a right ventricular lead was advanced to the RV apex. The right ventricular lead is a Medtronic model 5076, serial #[id number] and an R-wave sensitivity of 6.8, impedance 1179 ohms, threshold 0.6 volts at 0.5 milliseconds . The ventricular lead was sutured to the pectoral fascia using 0 silk. Over the second guidewire, a 7- [place] sheath introducer was placed through which a right atrial lead was advanced to the high r ight atrium. The right atrial lead was a Medtronic model 5076, serial #[id number] that had a P-wave sensitivity of 4.9, impedance 692 ohms, threshold 2 volts at 0.5 milliseconds. At the end of the cristina e, the atrial lead threshold was down to 0.75 volts at 0.4 milliseconds. The atrial lead was sutured to the pectoral fascia. The pocket was flushed with normal saline. The pacer generator was fire extinguisher inspector d appropriately to the atrial ventricular lead. The pacer generator was a Medtronic model A2DR01, se rial # #[id number]. The device was placed into the pocket. The surgical incision was closed in 3 la yers. The patient was returned to the holding area in stable condition. [id number]/[facility] #: [id number]
[2017-08-28 12:26] VITALS: BP 153/91
--- NOTE | 2017-08-28 13:02 | PN ---
Subjective Date of Service: 08/28/17 - CC: syncope (s/p pacer implant). Interval History: The patient feels well post pacer implant. No SOB Not dizzy. Only c/o is sciatica she had pre op. Medications Active Medications: Acetaminophen (Tylenol Tab*) 650 mg PO Q6H PRN PRN Reason: FEVER/PAIN Last Admin: 08/27/17 05:19 Dose: 650 mg Amlodipine Besylate (Norvasc Tab*) 5 mg PO DAILY [facility] Last Admin: 08/28/17 08:36 Dose: 5 mg Atorvastatin Calcium (Lipitor*) 10 mg PO QPM [facility] Last Admin: 08/27/17 17:26 Dose: 10 mg Bupropion HCl (Wellbutrin Xl *) 150 mg PO DAILY [facility] PRN Reason: Protocol Last Admin: 08/28/17 08:36 Dose: 150 mg Calcium Carbonate (Calcium Carbonate Tab*) 1,250 mg PO DAILY [facility] Last Admin: 08/28/17 08:37 Dose: 1,250 mg Citalopram Hydrobromide (Celexa Tab*) 20 mg PO QPM [facility] Last Admin: 08/27/17 17:26 Dose: 20 mg Clindamycin HCl (Cleocin Cap*) 150 mg PO TID [facility] Stop: 08/29/17 23:59 Last Admin: 08/28/17 08:37 Dose: 150 mg Diphenoxylate HCl/Atropine (Lomotil Tab*) 1 tab PO BID PRN PRN Reason: DIARRHEA Heparin Sodium (Porcine) (Heparin Vial(*)) 5,000 units SUBCUT Q8HR [facility] Last Admin: 08/28/17 05:52 Dose: 5,000 units Hydralazine HCl (Apresoline Iv*) 5 mg IV SLOW PU Q6H PRN PRN Reason: SYSTOLIC BP GREATER THAN: Last Admin: 08/23/17 17:41 Dose: 5 mg Levothyroxine Sodium (Synthroid Tab*) 125 mcg PO 0600 [facility] Last Admin: 08/28/17 05:52 Dose: 125 mcg [place] Carbonate ([place] Carbonate Er Tab*) 450 mg PO QPM [facility] Last Admin: 08/27/17 17:26 Dose: 450 mg Multivitamins/Minerals (Preservision Areds(Multivitamins/Mineral)(Nf)) 1 cap PO BID [facility] Last Admin: 08/28/17 09:45 Dose: Not Given Mupirocin (Bactroban 2 % Oint*) 1 applic TOPICAL BID [facility] Last Admin: 08/28/17 11:03 Dose: 1 applic Omeprazole (Prilosec Cap*) 20 mg PO DAILY [facility] Last Admin: 08/28/17 08:37 Dose: 20 mg Ondansetron HCl (Zofran Inj*) 4 mg IV Q6H PRN PRN Reason: NAUSEA Polyethylene Glycol/Electrolytes (Miralax*) 17 gm PO DAILY PRN PRN Reason: CONSTIPATION Last Admin: 08/27/17 17:26 Dose: 17 gm Quetiapine Fumarate (Seroquel Tab*) 100 mg PO BEDTIME [facility] Last Admin: 08/27/17 21:23 Dose: 100 mg Tramadol HCl (Ultram*) 50 mg PO Q6H PRN PRN Reason: PAIN Last Admin: 08/28/17 08:36 Dose: 50 mg Objective Vital Signs: Temp Pulse Resp BP Pulse Ox 98.5 F 72 16 153/91 95 08/28/17 11:55 08/28/17 11:55 08/28/17 11:55 08/28/17 11:55 08/28/17 11:55 Oxygen Devices in Use Now: None Appearance: elederly female,eating lunch in bed, NAD. Eyes: No Scleral Icterus, PERRLA Ears/Nose/Mouth/Throat: Mucous Membranes Moist Neck: NL Appearance and Movements; NL JVP, Trachea Midline Respiratory: Symmetrical Chest Expansion and Respiratory Effort, Clear to Auscultation Cardiovascular: RRR Abdominal: NL Sounds; No Tenderness; No Distention Extremities: No Edema Skin: No Rash or Ulcers - incision L subclavian fossa with no evidence of infection, minimal ecchymosis, no hematoma. Lines/Tubes/Other Access: Clean, Dry and Intact Peripheral IV Laboratory Results: 08/26/17 05:37 08/26/17 05:37 INR (Anticoag Therapy) 0.90 (0.77-1.02) 08/26/17 05:37 Total Bilirubin 0.40 mg/dL (0.2-1.0) 08/23/17 14:26 AST 17 U/L (13-39) 08/23/17 14:26 ALT 13 U/L (7-52) 08/23/17 14:26 Alkaline Phosphatase 69 U/L (34-104) 08/23/17 14:26 Total Protein 6.3 g/dL (6.4-8.9) L 08/23/17 14:26 Albumin 4.2 g/dL (3.2-5.2) 08/23/17 14:26 Globulin 2.1 g/dL (2-4) 08/23/17 14:26 Albumin/Globulin Ratio 2.0 (1-3) 08/23/17 14:26 Triglycerides 143 mg/dL 08/24/17 06:07 Cholesterol 167 mg/dL 08/24/17 06:07 LDL Cholesterol 97 mg/dL 08/24/17 06:07 HDL Cholesterol 41.2 mg/dL 08/24/17 06:07 TSH 0.99 mcIU/mL (0.34-5.60) 08/23/17 14:26 08/23/17 08/23/17 17:56 20:43 Troponin I 0.02 0.02 Diagnostic Imaging: CXR 08/27/17 No pneumothorax, good lead placement. CXR 08/28/17 No pneumo, leads with a bit less in the chambers, more lead in upper SVC (less "slack") EKG Data: Pacer interogation 08/28/17: AAI-DDD 60-130 P waves: 4.1 mV, A lead impedance 456 O, A pacing thresh 0.5v@0.4ms R waves: 8.6mV, V lead imedance 703 O, V pacing thresh 0.5v@0.4 ms Assessment/Plan 82 yo with recurrent syncope, alternating LBBB and RBBB POD #1 dual chamber pacemaker implantation doing well, good threshold and CXR and incision look good. Antibiotics for 4 days: Keflex 250 mg TID Wound check for frank in our office in 1 week Full pacer check and MD visit in 1 month. Shoulder immobilizer at upper arm for a month, ok to move LUE at wrist and elbow unrestricted.
--- NOTE | 2017-08-28 14:03 | DS ---
CC: Dr. Mehta; Dr. Sherman; Dr. Vallejo; Dr. Abernathy; Dr. Clark * DISCHARGE SUMMARY: DATE OF ADMISSION: 08/23/17 DATE OF DISCHARGE AND TRANSFER TO [facility] FACILITY: 08/28/17 PRIMARY CARE PROVIDER: Dr. Mehta. DISCHARGE DIAGNOSIS: Recurrent falls and syncope in a patient with transient left bundle branch block, status post pacemaker placement on 08/27/[address] Sherman. SECONDARY DIAGNOSES: 1. History of bipolar disorder. 2. Hypertension. 3. Hyperlipidemia. 4. Hypothyroidism. 5. Dementia. 6. Gastroesophageal reflux disease. 7. History of depression. 8. Incontinence. 9. Osteoarthritis. MEDICATIONS AT DISCHARGE: Include clindamycin 150 mg p.o. 3 times a day; the last dose on 08/29/17 night. The remaining medications are unchanged include: 1. Wellbutrin XL 150 mg daily. 2. Calcium carbonate 1250 mg daily. 3. Lomotil one tablet b.i.d. p.r.n. 4. Lexapro 10 mg daily. 5. Synthroid 125 mcg daily. 6. [place] carbonate 450 mg q.p.m. 7. Bactroban ointment 2% one application topical b.i.d. to affected area of the skin. 8. Omeprazole 20 mg daily. 9. Seroquel 100 mg at bedtime. 10. Zocor 20 mg daily. 11. Multivitamin one tablet daily. CONSULTATIONS DURING THE HOSPITAL STAY: Included Dr. Abernathy and Dr. Sherman from Cardiology. PROCEDURES PERFORMED: Included placement of pacemaker on 08/27/[address] Sherman. The pacemaker is a Medtronic with right ventricular lead model #5076 , serial #[id number]. The right atrial lead was Medtronic model 5076, serial # [id number]. The pacer generator is Medtronic model A2DR01, serial #[id number]. HOSPITALIZATION COURSE: Julianne Camarena is an 82-year-old female with history of dementia, who has history of falls and syncopal episodes and in the past was evaluated for possibility of pacemaker placement. At this time, she presented to the hospital on 08/23/17 with another episode of syncope. She had also history of abnormal stress test and intermittent left bundle branch block noted on the house mover helper bed. Cardiology saw the patient in consultation and recommended pacemaker placement. Patient had the pacemaker placed on 08/27/17 and did very well. Unfortunately due to her chronically worsening memory, history of falls, she will need rehabilitation placement after today's discharge. She is going to [facility] for further rehabilitation. LABORATORY DATA AND STUDIES PERFORMED DURING THE HOSPITAL STAY: Include: On 08/26/17; sodium of 141, potassium 4.0, chloride 110, carbon dioxide 24, BUN 25, creatinine 0.97. On 08/26/17; white blood cell count 5.9, hemoglobin 13.7, hematocrit 41, and platelets of 193. Patient's TSH level is 0.99 at admission. On 08/24/17; patient's triglyceride level is 143, cholesterol total of 167, LDL of 97, and HDL of 41. [place] level performed on 08/23/17 was 0.5. Followup pacemaker placement chest x-ray obtained on 08/28/17, impression: "No radiographic evidence of acute cardiopulmonary disease, status post left upper chest cardiac pacemaker placement". PHYSICAL EXAMINATION AT THE TIME OF DISCHARGE: Blood pressure of 145/91, heart rate of 68 and regular, respiratory rate 18, oxygen saturation 94% on room air, temperature of 99.5. General: Patient is a pleasant 82-year-old male who is in no acute distress. Patient is alert and oriented x2, rather poor historian. HEENT: Head: Atraumatic, normocephalic. Eyes: Pupils are equal and reactive to light and accommodation. Oropharynx clear. Mucosa moist. Neck: Supple. No JVD. No bruit bilaterally. Cardiovascular: Regular rate and rhythm. No murmur. Respiratory: Clear to auscultation bilaterally. Abdomen: Soft, nontender. Bowel sounds are present in all 4 quadrants. Extremities: There is no edema. +2 pulses bilaterally. No clubbing or cyanosis. On neuro evaluation, speech clear. Cranial nerves II through XII grossly intact. Motor strength is 5/5 bilaterally. On evaluation of the skin, patient's left subclavian area with pacemaker in place. The incision is approximately 2 to 3 [address] with [address] in place. No evidence of dehiscence. No evidence of cellulitis or drainage. There is no evidence of pacemaker hematoma. Patient has a small area of ecchymosis surrounding the area. At discharge, patient is recommended to follow up with primary care provider at [facility] within 3 to 7 days. The patient needs to follow up with Dr. Vallejo's service and patient is to see Shantell Avila NP for pacemaker check in a week and the civil engineering director office is going to call [facility] with the appointment date and time. Patient is to follow up with Dr. Vallejo in approximately 1 month. Once again the cardiology office will call the [facility] with scheduled appointment date. Please note that this is a short summary of the patient's hospitalization. Please refer to further medical records for details. TIME SPENT: Approximately 50 minutes was spent on patient's discharge. [id number]/[facility] #: [id number] LIV
== END 2017-08-28 13:25 | DRG 244 ==
LOC: ED 13:43 → MEDTELE 17:07
PROVIDERS: ADMIT Internal Medicine; ATTEND Internal Medicine
PROC: 02H63JZ Insertion of Pacemaker Lead into Right Atrium, Percutaneous Approach (ICD-10-PCS; 2017-08-27)
PROC: 02HK3JZ Insertion of Pacemaker Lead into Right Ventricle, Percutaneous Approach (ICD-10-PCS; 2017-08-27)
PROC: 0JH606Z Insertion of Pacemaker, Dual Chamber into Chest Subcutaneous Tissue and Fascia, Open Approach (ICD-10-PCS; principal; 2017-08-27 09:00)
DX: I45.2 Bifascicular block (principal); F31.9 Bipolar disorder, unspecified; E78.5 Hyperlipidemia, unspecified; R32 Unspecified urinary incontinence; F79 Unspecified intellectual disabilities; E03.9 Hypothyroidism, unspecified; I10 Essential (primary) hypertension; K21.9 Gastro-esophageal reflux disease without esophagitis; I44.0 Atrioventricular block, first degree; F03.90 Unspecified dementia, unspecified severity, without behavioral disturbance, psychotic disturbance, mood disturbance, and anxiety; K58.1 Irritable bowel syndrome with constipation; M15.9 Polyosteoarthritis, unspecified; F41.9 Anxiety disorder, unspecified; H26.9 Unspecified cataract; M41.9 Scoliosis, unspecified; Z80.3 Family history of malignant neoplasm of breast; Z88.8 Allergy status to other drugs, medicaments and biological substances; Z88.2 Allergy status to sulfonamides; Z88.5 Allergy status to narcotic agent; Z85.9 Personal history of malignant neoplasm, unspecified; Z88.1 Allergy status to other antibiotic agents; Z91.81 History of falling; Z72.89 Other problems related to lifestyle; Z82.49 Family history of ischemic heart disease and other diseases of the circulatory system
CPT/HCPCS: 33208; 36415; 70450; 71045; 71046; 72192; 80048; 80053; 80061; 80178; 81003; 83605; 83735; 84443; 84484; 85025; 85610; 93005; 99156; 99157; 99285; A9270-GY; C1785; C1898; G8978-GP-CL; G8979-GP-CI; J0360; J1644; J2250; J3010